=== PATIENT | male | born 1935 | race Caucasian/White ===

== ENCOUNTER 2016-09-06 23:37 | Day surgery (SDC) | payer MEDICARE, BC ==
[2016-09-07] MEDS ORDERED: Sodium Chloride 0.9% 10 ML Syringe FLUSH PRN (00:23)
[2016-09-07] MEDS ORDERED: Iopamidol 755 Mg/ML 100 ML Bottle IV SCH (01:00)
[2016-09-07] MEDS ORDERED: Sodium Chloride 0.9% 1,000 ML IV ONE (02:08)
[2016-09-07] MEDS ORDERED: Lactated Ringers 1,000 ML IV SCH (02:15)
[2016-09-07] MEDS ORDERED: fentaNYL 100 MCG/2 ML SDV IV ONE (03:00)
[2016-09-07] MEDS ORDERED: cefOXitin 1 GM Vial IV ONE (03:00)
[2016-09-07] MEDS ORDERED: Midazolam 1 MG/ML 2 ML SDV IV ONE (03:00)
[2016-09-07] MEDS ORDERED: Lidocaine 2% 100 MG/5 ML Syringe IVPUSH ONE (03:00)
[2016-09-07] MEDS ORDERED: Dexamethasone 4 MG/ML 5 ML MDV IVPUSH ONE (03:00)
[2016-09-07] MEDS ORDERED: Lactated Ringers 1,000 ML IV ONE (03:00)
[2016-09-07] MEDS ORDERED: Ondansetron 4 MG/2 ML SDV IVPUSH ONE (03:00)
[2016-09-07] MEDS ORDERED: Propofol 200 MG/20 ML SDV IV ONE (03:00)
[2016-09-07] MEDS ORDERED: Succinylcholine/Normal Saline 200 MG/10 ML Syringe IV ONE (03:00)
[2016-09-07] MEDS ORDERED: Rocuronium 50 MG/5 ML Vial IV ONE (03:00)
[2016-09-07] MEDS ORDERED: ePHEDrine 50 MG/ML SDV IV ONE (03:00)
[2016-09-07] MEDS ORDERED: Neostigmine Methylsulfate 1 MG/ML 5 ML Syringe IV ONE (03:00)
--- NOTE | 2016-09-07 03:01 | ER ---
DATE SEEN: 09/06/2016 EKG: Sinus rhythm. Nonspecific intraventricular conduction. Otherwise, no evidence for atrial fibrillation. /[id number] OTONIEL/EDUARDO
[2016-09-07] MEDS ORDERED: Bupivacaine 0.5%/EPINEPHrine 1:200,000 50 ML MDV INJECT ONE (03:28)
--- NOTE | 2016-09-07 03:46 | HP ---
ADMISSION DATE: 09/07/2016 HISTORY OF PRESENT ILLNESS: This 81-year-old male presented to the emergency room with a several-hour history of abdominal pain. The pain had been present for about 4-6 hours and had been gradually intensifying in the lower abdomen. During evaluation, the patient was noted to have the pain most severe in the right lower quadrant. It was not associated with nausea or diarrhea and the patient has not had fever or chills. The patient was evaluated with laboratory studies, which were unremarkable with a normal white blood cell count of 10,800 and a hemoglobin of 12.1. His potassium is 4.0 and creatinine is 1.3. His INR is 1.36. Urinalysis is unremarkable. The patient underwent a CT scan of the abdomen, which was interpreted by the radiologist as showing evidence of appendicitis with a dilated appendix with some periappendiceal inflammation. PAST MEDICAL HISTORY: Shows previous surgeries to include bilateral inguinal hernias. He has a history of hypertension and atrial fibrillation. CURRENT MEDICATIONS: Include amiodarone 100 mg a day, Coumadin 5 mg a day, trandolapril 4 mg a day, and omeprazole 20 mg a day. ALLERGIES: He has no known drug allergies, although he does state he is allergic to peanuts. SOCIAL HISTORY: He does not smoke. 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 REVIEW OF SYSTEMS: On system review, he denies any recent problems with cough, cold, or sore throat symptoms. No chest pain or palpitations. Appetite has generally been good recently. He has had a colonoscopy less than a year ago, which showed that his colon appeared normal. There was diverticula noted on his CT scan, but without evidence of diverticulitis. PHYSICAL EXAMINATION: VITAL SIGNS: Temperature is 97.6, pulse 70, blood pressure is 121/91 on admission to the ER. GENERAL: The patient is an alert, elderly male. He is in no acute distress. HEENT: His head is normocephalic. There is no scleral icterus. NECK: Supple. No cervical masses. HEART: Irregular. No murmurs heard. LUNGS: Clear. Breath sounds are equal. There is no wheezing. ABDOMEN: Not distended. There is localized tenderness to direct palpation as well as percussion in the right lower quadrant with mild guarding. I do not feel any abdominal masses. EXTREMITIES: No calf tenderness or ankle edema. NEUROLOGIC: The patient is alert and does not demonstrate any gross cognitive deficit. IMPRESSION: 1. Acute appendicitis. 2. Atrial fibrillation, on Coumadin. Current INR mildly elevated. 3. History of hypertension. PLAN: Advised appendectomy. Even though the patient has taken Coumadin and is somewhat anticoagulated, I believe the risk of delaying surgery in this patient is greater than the risk of bleeding, and I have advised that we proceed promptly with this operation. I have discussed this with the patient reviewing with him indications, options, and risks, such as the increased risk of bleeding, risk of infection, organ injury, and possible need to convert to an open procedure. He appears to understand the discussion and agrees to proceed. /[id number] MARVIN/EDUARDO
[2016-09-07] MEDS ORDERED: Morphine 2 MG/ML Syringe IVPUSH PRN (04:09)
[2016-09-07] MEDS ORDERED: Acetaminophen/HYDROcodone 325-5 MG Tab PO PRN (04:09)
[2016-09-07] MEDS ORDERED: Ondansetron 4 MG/2 ML SDV IVPUSH PRN (04:09)
--- NOTE | 2016-09-07 04:09 | PCM.OPNOTE ---
- General Post-Op/Procedure Note Date of Surgery/Procedure: 09/07/16 Operative Procedure(s): Laparoscopic Appendectomy Findings: Acutely inflamed appendix Pre Op Diagnosis: Acute Appendicitis Post-Op Diagnosis: Same Anesthesia Technique: General ET tube Primary Surgeon: Romero Iglesias Pathology: Appendix Output, Urine Amount: 0 EBL in mLs: 25 Complications: None Condition: Good
[2016-09-07] MEDS ORDERED: cefOXitin 2 GM in Sodium Chloride 0.9% 50 ML IV SCH (04:15)
[2016-09-07] MEDS: Lactated Ringers 1,000 ML IV SCH ×2 (04:37→15:13)
--- NOTE | 2016-09-07 06:08 | OR ---
DATE OF OPERATION: 09/07/2016 SURGEON: Romero Iglesias MD PREOPERATIVE DIAGNOSIS: Acute appendicitis. POSTOPERATIVE DIAGNOSIS: Acute appendicitis. OPERATION PERFORMED: Laparoscopic appendectomy. INDICATIONS FOR SURGERY: This 81-year-old male presented to the emergency room with progressive lower abdominal pain. He was noted to have localized tenderness in the right lower quadrant and a CT scan of the abdomen confirmed findings consistent with acute appendicitis. FINDINGS: The appendix was acutely inflamed. It was indurated, had a small amount of surface exudate. The proximal portion of the appendix was hyperemic but there was no evidence of perforation, and the proximal appendix and adjacent cecum were soft without induration. No other intraabdominal abnormalities were seen laparoscopically. PROCEDURE IN DETAIL: The patient was taken to the operating room. He was given general endotracheal anesthesia and the abdomen was sterilely prepped and draped. An infraumbilical stab wound incision was made. Through this, a Veress needle was inserted and pneumoperitoneum via this needle to a pressure of 15 mmHg was achieved with carbon dioxide. The Veress needle was then replaced with a 5 mm trocar into which the 5 mm variable angled laparoscopic camera was inserted. Under direct visualization, a 12 mm trocar was placed in the suprapubic midline and another 5 mm trocar was placed in the right lower quadrant. All trocar sites were infiltrated with Marcaine prior to incision. Intraabdominal inspection was carried out and attention was turned to the appendix. The appendix was exposed and then a small window was made in the mesoappendix adjacent to the cecum. An Endo LUCY stapler with 2.5 mm staple length was then fired across the appendiceal cecal junction the appendix from the cecum. The cecal staple line was carefully inspected and found to appear intact and of good quality. Two firings of the Endo LUCY with 2.5 mm staple length was then carried out across the mesoappendix completely dividing this. The appendix was placed into an Endo retrieval bag and then extracted through the largest trocar site. Reinspection of the operative area showed good hemostasis to be maintained. There did not appear to be any excessive bleeding during the case related to the patient's Coumadin use. Copious irrigation of the operative region was performed. Inspection showed no sign of bleeding or complicating process. The trocars were then removed under direct visualization and the pneumoperitoneum was evacuated. The fascia of the suprapubic trocar site was closed with a [id number] 0 Vicryl suture. The wounds were irrigated with Betadine and saline solution. Skin incisions were approximated with interrupted 4-0 Vicryl in a subcuticular stitch, Steri-Strips and benzoin were applied. Antibiotic ointment and sterile dressings were placed. The patient was then awakened, extubated, and taken from the operating room in satisfactory condition. ESTIMATED BLOOD LOSS: 25 mL. COMPLICATIONS: None. PROGNOSIS: Good. /[id number] MARVIN/EDUARDO
[2016-09-07] MEDS ORDERED: Omeprazole 20 MG Cap.CR PO SCH (09:00)
[2016-09-07] MEDS: cefOXitin 2 GM in Sodium Chloride 0.9% 50 ML IV SCH ×3 (09:24→20:53)
[2016-09-07] MEDS: OMEPRAZOLE 20 MG PO SCH (12:30)
[2016-09-07] MEDS: TRANDOLAPRIL 4 MG PO SCH (12:30)
[2016-09-07] MEDS: AMIODARONE 200 MG PO SCH (12:30)
--- NOTE | 2016-09-07 12:53 | ER ---
DATE SEEN: 09/06/2016 TIME SEEN: The patient was seen at 2358 hours. CHIEF COMPLAINT: Right lower quadrant pain. 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 No associated vomiting, diarrhea, but noted 8/10 right lower quadrant abdominal discomfort. PAST MEDICAL HISTORY: No allergies. No diabetes. No heart disease. He does have atrial fibrillation. MEDICATIONS: 1. Taking anticoagulants. 2. Warfarin 5 mg daily. 3. Trandolapril. 4. Omeprazole. 5. Amiodarone 100 mg daily. Previously documented Katz's esophagitis, hiatus hernia. No asthma. No bleeding disorder. REVIEW OF SYSTEMS: GENERAL: No previous surgery. HEENT: PERRLA intact, without cataract, headache, sore throat, sinusitis. CARDIORESPIRATORY: No chest pain, shortness of breath, diabetes, syncope or near syncope, palpitations. No chronic obstructive lung disease. He was not a smoker. No cough. No dyspnea on exertion. No orthopnea or PND. No pedal edema. GI: As above. No GERD, diarrhea, constipation, blood in the stool. : Denies frequency, urgency, dysuria, or difficulty passing urine. MUSCULOSKELETAL: Negative. Mild arthritis, but otherwise asymptomatic. NEUROPSYCH: Negative. No depression. PHYSICAL EXAMINATION: VITAL SIGNS: Blood pressure 121/91; heart rate 59, irregularly irregular; respirations 20; 99% sat; temperature 97.2. GENERAL: Alert, swarthy, somewhat tanned, and without scleral icterus. Slightly decreased hearing. No cervical adenopathy. No thyromegaly. No bruits in neck. HEART: S1, S2. No murmur. ABDOMEN: Soft, with mild guarding right lower quadrant. Rovsing sign is positive. Heel tap rebound noted. GENITALIA: Negative. RECTAL: Not performed. EXTREMITIES: Lower extremities without edema. Deep tendon reflexes hypoactive. NEUROLOGIC: Cranial nerves II through XII intact. Oriented. DIAGNOSTIC DATA: CAT scan; 9 mm fluid-filled appendix, suggesting appendicitis with mild appendiceal stranding. No rupture or abscess. Colonic diverticulosis without acute diverticulitis noted. Hiatus hernia with reflux into the lower esophagus, fat-containing umbilical hernia. Previous right inguinal herniorrhaphy surgery. Multilevel degenerative bony changes, grade 1 anterolisthesis at L3 on L4 and L4 on L5. Mild attenuations upper pole of both kidneys, 2.1 cm cyst left inferior pole of the kidney. Lower lungs show mild scarring and atelectasis. ASSESSMENT: Appendicitis. LABORATORY DATA: White count 10,800, PMNs 83, lymphocytes 11, monos 6, hemoglobin 12.8. Lactate 1.0. Sodium 133, potassium 4.0, chloride 103, bicarb 22, GFR 53, hemoglobin 12.1. PLAN: The patient's status discussed with Dr. Iglesias. The patient is to go to surgery, is a mild surgical risk because of the anticoagulation, INR pending. N.p.o., IV 600 mL flush, followed by 200 mL/hr of warm saline. /[id number] OTONIEL/EDUARDO
--- NOTE | 2016-09-07 16:19 | PCM.SURGPN ---
- General Info Date of Service: 09/07/16 Date of Surgery/Procedure: 09/07/16 POD#: 0 Post-Op Diagnosis: Acute Appendicitis Functional Status: Reports: pain controlled (not taking pain meds) - Review of Systems Pulmonary: Reports: no symptoms Gastrointestinal: Reports: Other (taking PO liquids well). Denies: Nausea, Vomiting Musculoskeletal: Reports: no symptoms - Patient Data Vitals - most recent: Last Vital Signs Temp 97.3 F 09/07/16 13:03 Pulse 73 09/07/16 13:03 Resp 17 09/07/16 13:03 BP 144/80 H 09/07/16 13:03 Pulse Ox 95 09/07/16 13:03 Weight - most recent: 191 lb 9.6 oz I&O - last 24 hours: Intake & Output 09/07/16 09/07/16 09/07/16 06:59 14:59 22:59 Intake Total 100 1000 Output Total 50 1200 280 Balance 50 -200 -280 Lab Results last 24 hrs: Laboratory Results - last 24 hr 09/07/16 09/07/16 09/07/16 Range/Units 00:20 00:40 00:40 WBC 10.8 (4.5-12.0) X10-3/uL RBC 3.63 L (4.30-5.75) x10(6)uL Hgb 12.1 (11.5-15.5) g/dL Hct 35.5 (30.0-51.3) % MCV 97.9 H (80-96) fL MCH 33.2 (27.7-33.6) pg MCHC 33.9 (32.2-35.4) g/dL RDW 13.9 (11.5-15.5) % Plt Count 203 (125-369) X10(3)uL MPV 7.9 (7.4-10.4) fL Neut % (Auto) 83.0 H (46-82) % Lymph % (Auto) 10.5 L (13-37) % [place] % (Auto) 5.7 (4-12) % Eos % (Auto) 1 (1.0-5.0) % Baso % (Auto) 0 (0-2) % Neut # (Auto) 9.0 H (1.6-8.3) # Lymph # (Auto) 1.1 (0.6-5.0) # [place] # (Auto) 0.6 (0.0-1.3) # Eos # (Auto) 0.1 (0.0-0.8) # Baso # (Auto) 0.0 (0.0-0.2) # PT (8.7-11.1) INR (0.89-1.13) Sodium 133 L (135-145) mmol/L Potassium 4.0 (3.5-5.3) mmol/L Chloride 103 (100-110) mmol/L Carbon Dioxide 22 L (23-29) mmol/L BUN 20 (8-23) mg/dL Creatinine 1.3 (0.6-1.3) mg/dL Est Cr Clr Drug Dosing TNP Estimated GFR (MDRD) 53 L (>60) BUN/Creatinine Ratio 15.4 (9-20) Glucose 103 (80-116) mg/dL Lactic Acid (0.5-2.2) mmol/L Calcium 9.0 (8.6-10.2) mg/dL Total Bilirubin 0.6 (0.1-1.3) mg/dL AST 27 (5-27) IU/L ALT 19 (14-26) IU/L Alkaline Phosphatase 73 (56-112) IU/L Total Protein 7.4 (6.0-8.0) g/dL Albumin 4.3 (3.2-4.6) g/dL Globulin 3.1 g/dL Albumin/Globulin Ratio 1.4 Urine Color Yellow (YELLOW) Urine Appearance Clear (CLEAR) Urine pH 5.0 (5.0-6.5) Ur Specific [place] 1.025 (1.010-1.025) Urine Protein Negative (NEGATIVE) mg/dL Urine Glucose (UA) Normal (NEGATIVE) mg/dL Urine Ketones 15 H (NEGATIVE) mg/dL Urine Occult Blood Negative (NEGATIVE) Urine Nitrite Negative (NEGATIVE) Urine Bilirubin Small H (NEGATIVE) Urine Urobilinogen Normal (NEGATIVE) mg/dL Ur Leukocyte Esterase Negative (NEGATIVE) Urine RBC 0-5 (0) Urine WBC 0-5 (0) Ur Squamous Epith Cells Occasional (NS,R,O) Urine Bacteria Rare H (NS) Urine Mucus Few H (NS) 09/07/16 09/07/16 Range/Units 00:40 00:40 WBC (4.5-12.0) X10-3/uL RBC (4.30-5.75) x10(6)uL Hgb (11.5-15.5) g/dL Hct (30.0-51.3) % MCV (80-96) fL MCH (27.7-33.6) pg MCHC (32.2-35.4) g/dL RDW (11.5-15.5) % Plt Count (125-369) X10(3)uL MPV (7.4-10.4) fL Neut % (Auto) (46-82) % Lymph % (Auto) (13-37) % [place] % (Auto) (4-12) % Eos % (Auto) (1.0-5.0) % Baso % (Auto) (0-2) % Neut # (Auto) (1.6-8.3) # Lymph # (Auto) (0.6-5.0) # [place] # (Auto) (0.0-1.3) # Eos # (Auto) (0.0-0.8) # Baso # (Auto) (0.0-0.2) # PT 13.8 H (8.7-11.1) INR 1.36 H (0.89-1.13) Sodium (135-145) mmol/L Potassium (3.5-5.3) mmol/L Chloride (100-110) mmol/L Carbon Dioxide (23-29) mmol/L BUN (8-23) mg/dL Creatinine (0.6-1.3) mg/dL Est Cr Clr Drug Dosing Estimated GFR (MDRD) (>60) BUN/Creatinine Ratio (9-20) Glucose (80-116) mg/dL Lactic Acid 1.0 (0.5-2.2) mmol/L Calcium (8.6-10.2) mg/dL Total Bilirubin (0.1-1.3) mg/dL AST (5-27) IU/L ALT (14-26) IU/L Alkaline Phosphatase (56-112) IU/L Total Protein (6.0-8.0) g/dL Albumin (3.2-4.6) g/dL Globulin g/dL Albumin/Globulin Ratio Urine Color (YELLOW) Urine Appearance (CLEAR) Urine pH (5.0-6.5) Ur Specific [place] (1.010-1.025) Urine Protein (NEGATIVE) mg/dL Urine Glucose (UA) (NEGATIVE) mg/dL Urine Ketones (NEGATIVE) mg/dL Urine Occult Blood (NEGATIVE) Urine Nitrite (NEGATIVE) Urine Bilirubin (NEGATIVE) Urine Urobilinogen (NEGATIVE) mg/dL Ur Leukocyte Esterase (NEGATIVE) Urine RBC (0) Urine WBC (0) Ur Squamous Epith Cells (NS,R,O) Urine Bacteria (NS) Urine Mucus (NS) Med Orders - Current: Current Medications Hydrocodone Bitart/Acetaminophen ([place] 325-5 Mg) 1 tab PO Q4H PRN PRN Reason: Pain (mild 1-3) Amiodarone HCl (Cordarone) 100 mg PO DAILY [facility] Last Admin: 09/07/16 12:30 Dose: 100 mg Lactated Ringer's (Ringers, Lactated) 1,000 mls @ 50 mls/hr IV ASDIRECTED [facility] Last Admin: 09/07/16 15:13 Dose: 100 mls/hr Cefoxitin Sodium 2 gm/ Sodium (Chloride) 50 mls @ 100 mls/hr IV Q6H [facility] Last Admin: 09/07/16 15:13 Dose: 100 mls/hr Iopamidol (Isovue-370 (76%)) 100 ml IV . DIRECTED [facility] Last Admin: 09/07/16 01:26 Dose: 92 ml Morphine Sulfate (Morphine) 2 mg IVPUSH Q1H PRN PRN Reason: Pain (severe 7-10) Non-Formulary Medication (Trandolapril [Trandolapril]) 4 mg PO DAILY [facility] Last Admin: 09/07/16 12:30 Dose: 4 mg Omeprazole (Omeprazole) 20 mg PO 0600 [facility] Last Admin: 09/07/16 12:30 Dose: 20 mg Ondansetron HCl (Zofran) 4 mg IVPUSH Q6H PRN PRN Reason: Nausea/Vomiting Sodium Chloride (Saline Flush) 10 ml FLUSH ASDIRECTED PRN PRN Reason: Keep Vein Open Last Admin: 09/07/16 00:25 Dose: 10 ml Discontinued Medications Bupivacaine HCl/Epinephrine Bitart (Marcaine 0.5%/Epinephrine 1:200,000) 12 ml INJECT .STK-MED ONE Stop: 04/25/17 03:29 Last Admin: 09/07/16 03:28 Dose: 12 ml Sodium Chloride (Normal Saline) 1,000 mls @ 999 mls/hr IV .BOLUS ONE Stop: 09/07/16 03:08 Last Admin: 09/07/16 02:21 Dose: 999 mls/hr Omeprazole (Omeprazole) 20 mg PO DAILY [facility] - Exam Wound/Incisions: dressing dry and intact Lungs: Normal respiratory effort - Problem List Review Problem List Initiated/Reviewed/Updated: Yes - My Orders Last 24 Hours: Active Orders 24 hr Category Date Time Status Patient Status [ADT] Routine ADT 09/07/16 04:09 Active Ambulate [RC] 09,13,17,21 Care 09/07/16 04:09 Active Antiembolic Devices [RC] 08,16,00 Care 09/07/16 04:12 Active Intake and Output [RC] 06,14,22 Care 09/07/16 04:11 Active RT Incentive Spirometry [RC] Q1HWA Care 09/07/16 04:09 Active VTE/DVT Education [RC] Click to Edit Care 09/07/16 04:12 Active Vital Signs [RC] Q4H Care 09/07/16 04:09 Active Clear Liquid Diet [DIET] Diet 09/07/16 Breakfast Ordered Full Liquid Diet [DIET] Diet 09/08/16 Breakfast Ordered Abdomen Pelvis w Cont [CT] Stat Exams 09/07/16 00:18 Taken Acetaminophen/HYDROcodone [[place] 325-5 MG] Med 09/07/16 04:09 Active 1 tab PO Q4H PRN Amiodarone [Cordarone] Med 09/07/16 09:00 Active 100 mg PO DAILY Iopamidol [Isovue-370 (76%)] Med 09/07/16 01:00 Active 100 ml IV . DIRECTED Lactated Ringers [Ringers, Lactated] 1,000 ml Med 09/07/16 04:15 Active IV ASDIRECTED Morphine Med 09/07/16 04:09 Active 2 mg IVPUSH Q1H PRN Omeprazole Med 09/07/16 11:30 Active 20 mg PO 0600 Ondansetron [Zofran] Med 09/07/16 04:09 Active 4 mg IVPUSH Q6H PRN Sodium Chloride 0.9% [Saline Flush] Med 09/07/16 00:23 Active 10 ml FLUSH ASDIRECTED PRN Trandolapril [Trandolapril] Med 09/07/16 09:00 Active 4 mg PO DAILY cefOXitin [Mefoxin] 2 gm Med 09/07/16 09:00 Active Sodium Chloride 0.9% [Normal Saline] 50 ml IV Q6H DVT/VTE Prophylaxis Reflex [OM.PC] Per Unit Routine Oth 09/07/16 04:12 Ordered Saline Lock Insert [OM.PC] Routine Oth 09/07/16 00:23 Ordered Sequential Compression Device [OM.PC] Routine Oth 09/07/16 04:09 Ordered Resuscitation Status Routine Resus Stat 09/07/16 04:09 Ordered EKG 12 Lead [EK] Routine Ther 09/07/16 02:13 Ordered Medication Orders Hydrocodone Bitart/Acetaminophen ([place] 325-5 Mg) 1 tab PO Q4H PRN PRN Reason: Pain (mild 1-3) Amiodarone HCl (Cordarone) 100 mg PO DAILY [facility] Last Admin: 09/07/16 12:30 Dose: 100 mg Lactated Ringer's (Ringers, Lactated) 1,000 mls @ 50 mls/hr IV ASDIRECTED [facility] Last Admin: 09/07/16 15:13 Dose: 100 mls/hr Infusion: 09/07/16 14:37 Dose: 100 mls/hr Admin: 09/07/16 04:37 Dose: 100 mls/hr Cefoxitin Sodium 2 gm/ Sodium (Chloride) 50 mls @ 100 mls/hr IV Q6H [facility] Last Admin: 09/07/16 15:13 Dose: 100 mls/hr Admin: 09/07/16 09:24 Dose: 100 mls/hr Iopamidol (Isovue-370 (76%)) 100 ml IV . DIRECTED [facility] Last Admin: 09/07/16 01:26 Dose: 92 ml Morphine Sulfate (Morphine) 2 mg IVPUSH Q1H PRN PRN Reason: Pain (severe 7-10) Non-Formulary Medication (Trandolapril [Trandolapril]) 4 mg PO DAILY [facility] Last Admin: 09/07/16 12:30 Dose: 4 mg Omeprazole (Omeprazole) 20 mg PO 0600 [facility] Last Admin: 09/07/16 12:30 Dose: 20 mg Ondansetron HCl (Zofran) 4 mg IVPUSH Q6H PRN PRN Reason: Nausea/Vomiting Sodium Chloride (Saline Flush) 10 ml FLUSH ASDIRECTED PRN PRN Reason: Keep Vein Open Last Admin: 09/07/16 00:25 Dose: 10 ml - Assessment Assessment (Free Text/Narrative):: Stable from appendectomy early this AM On Coumadin regularly but no sign of any post op bleeding - Plan Plan (Free Text/Narrative):: Will have patient stay tonight Give Full Liquids in AM Continue to hold Coumadin
[2016-09-08] MEDS: cefOXitin 2 GM in Sodium Chloride 0.9% 50 ML IV SCH ×2 (03:30→08:46)
[2016-09-08] MEDS: OMEPRAZOLE 20 MG PO SCH (07:12)
[2016-09-08] MEDS: TRANDOLAPRIL 4 MG PO SCH (08:35)
[2016-09-08] MEDS: AMIODARONE 200 MG PO SCH (08:35)
--- NOTE | 2016-09-08 08:35 | PCM.SURGPN ---
- General Info Date of Service: 09/08/16 Date of Surgery/Procedure: 09/07/16 POD#: 1 Post-Op Diagnosis: Acute Appendicitis Functional Status: Reports: pain controlled (not requiring pain medication) - Review of Systems Pulmonary: Denies: shortness of breath Cardiovascular: Denies: Chest Pain, Edema Gastrointestinal: Reports: Other (tolerated full liquids well this am). Denies : Nausea, Vomiting Genitourinary: Reports: no symptoms - Patient Data Vitals - most recent: Last Vital Signs Temp 97.4 F 09/08/16 03:30 Pulse 69 09/08/16 03:30 Resp 18 09/08/16 07:00 BP 137/80 09/08/16 03:30 Pulse Ox 96 09/08/16 03:30 Weight - most recent: 191 lb 9.6 oz I&O - last 24 hours: Intake & Output 09/07/16 09/08/16 09/08/16 22:59 06:59 14:59 Intake Total 1881 1020 Output Total 1855 1900 Balance 26 -880 Med Orders - Current: Current Medications Hydrocodone Bitart/Acetaminophen ([employer] 325-5 Mg) 1 tab PO Q4H PRN PRN Reason: Pain (mild 1-3) Amiodarone HCl (Cordarone) 100 mg PO DAILY [facility] Last Admin: 09/07/16 12:30 Dose: 100 mg Lactated Ringer's (Ringers, Lactated) 1,000 mls @ 50 mls/hr IV ASDIRECTED [facility] Last Admin: 09/07/16 15:13 Dose: 100 mls/hr Cefoxitin Sodium 2 gm/ Sodium (Chloride) 50 mls @ 100 mls/hr IV Q6H [facility] Last Admin: 09/08/16 03:30 Dose: 100 mls/hr Iopamidol (Isovue-370 (76%)) 100 ml IV . DIRECTED [facility] Last Admin: 09/07/16 01:26 Dose: 92 ml Morphine Sulfate (Morphine) 2 mg IVPUSH Q1H PRN PRN Reason: Pain (severe 7-10) Non-Formulary Medication (Trandolapril [Trandolapril]) 4 mg PO DAILY [facility] Last Admin: 09/07/16 12:30 Dose: 4 mg Omeprazole (Omeprazole) 20 mg PO 0600 [facility] Last Admin: 09/08/16 07:12 Dose: 20 mg Ondansetron HCl (Zofran) 4 mg IVPUSH Q6H PRN PRN Reason: Nausea/Vomiting Sodium Chloride (Saline Flush) 10 ml FLUSH ASDIRECTED PRN PRN Reason: Keep Vein Open Last Admin: 09/07/16 00:25 Dose: 10 ml Discontinued Medications Bupivacaine HCl/Epinephrine Bitart (Marcaine 0.5%/Epinephrine 1:200,000) 12 ml INJECT .STK-MED ONE Stop: 09/07/16 03:29 Last Admin: 09/07/16 03:28 Dose: 12 ml Cefoxitin Sodium (Mefoxin) 1 gm IV .STK-MED ONE Stop: 09/07/16 03:01 Dexamethasone (Dexamethasone) 4 mg IVPUSH .STK-MED ONE Stop: 09/07/16 03:01 Ephedrine Sulfate (Ephedrine Sulfate) 30 mg IV .STK-MED ONE Stop: 09/07/16 03:01 Fentanyl (Sublimaze) 100 mcg IV .STK-MED ONE Stop: 09/07/16 03:01 Glycopyrrolate () 0.4 mg IVPUSH .STK-MED ONE Stop: 09/07/16 03:01 Sodium Chloride (Normal Saline) 1,000 mls @ 999 mls/hr IV .BOLUS ONE Stop: 09/07/16 03:08 Last Admin: 09/07/16 02:21 Dose: 999 mls/hr Lactated Ringer's (Ringers, Lactated) 1,000 mls @ as directed IV .STK-MED ONE Stop: 09/07/16 03:01 Lidocaine HCl (Xylocaine 2%) 80 mg IVPUSH .STK-MED ONE Stop: 09/07/16 03:01 Midazolam HCl (Versed 1 Mg/Ml) 2 mg IV .STK-MED ONE Stop: 09/07/16 03:01 Neostigmine Methylsulfate (Neostigmine) 3 mg IV .STK-MED ONE Stop: 09/07/16 03:01 Omeprazole (Omeprazole) 20 mg PO DAILY [facility] Ondansetron HCl (Zofran) 4 mg IVPUSH .STK-MED ONE Stop: 09/07/16 03:01 Propofol (Diprivan 20 Ml) 130 mg IV .STK-MED ONE Stop: 09/07/16 03:01 Rocuronium [place] (Zemuron) 30 mg IV .STK-MED ONE Stop: 09/07/16 03:01 Succinylcholine Chloride (Succinylcholine In Ns Pf) 100 mg IV .STK-MED ONE Stop: 09/07/16 03:01 - Exam Wound/Incisions: healing well, drainage (mil). No: erythema General: alert, oriented (Moderate bruising around umbilical incision) Lungs: Normal respiratory effort Abdomen: soft, tenderness (minimal in RLQ - much improved from pre op) Extremities: no edema, no tenderness/swelling - Problem List Review Problem List Initiated/Reviewed/Updated: Yes - My Orders Last 24 Hours: Active Orders 24 hr Category Date Time Status Full Liquid Diet [DIET] Diet 09/08/16 Breakfast Ordered Amiodarone [Cordarone] Med 09/07/16 09:00 Active 100 mg PO DAILY Omeprazole Med 09/07/16 11:30 Active 20 mg PO 0600 Trandolapril [Trandolapril] Med 09/07/16 09:00 Active 4 mg PO DAILY cefOXitin [Mefoxin] 2 gm Med 09/07/16 09:00 Active Sodium Chloride 0.9% [Normal Saline] 50 ml IV Q6H Medication Orders Hydrocodone Bitart/Acetaminophen ([employer] 325-5 Mg) 1 tab PO Q4H PRN PRN Reason: Pain (mild 1-3) Amiodarone HCl (Cordarone) 100 mg PO DAILY [facility] Last Admin: 09/07/16 12:30 Dose: 100 mg Lactated Ringer's (Ringers, Lactated) 1,000 mls @ 50 mls/hr IV ASDIRECTED [facility] Last Admin: 09/07/16 15:13 Dose: 100 mls/hr Infusion: 09/07/16 14:37 Dose: 100 mls/hr Admin: 09/07/16 04:37 Dose: 100 mls/hr Cefoxitin Sodium 2 gm/ Sodium (Chloride) 50 mls @ 100 mls/hr IV Q6H [facility] Last Admin: 09/08/16 03:30 Dose: 100 mls/hr Admin: 09/07/16 20:53 Dose: 100 mls/hr Admin: 09/07/16 15:13 Dose: 100 mls/hr Admin: 09/07/16 09:24 Dose: 100 mls/hr Iopamidol (Isovue-370 (76%)) 100 ml IV . DIRECTED [facility] Last Admin: 09/07/16 01:26 Dose: 92 ml Morphine Sulfate (Morphine) 2 mg IVPUSH Q1H PRN PRN Reason: Pain (severe 7-10) Non-Formulary Medication (Trandolapril [Trandolapril]) 4 mg PO DAILY [facility] Last Admin: 09/07/16 12:30 Dose: 4 mg Omeprazole (Omeprazole) 20 mg PO 0600 [facility] Last Admin: 09/08/16 07:12 Dose: 20 mg Admin: 09/07/16 12:30 Dose: 20 mg Ondansetron HCl (Zofran) 4 mg IVPUSH Q6H PRN PRN Reason: Nausea/Vomiting Sodium Chloride (Saline Flush) 10 ml FLUSH ASDIRECTED PRN PRN Reason: Keep Vein Open Last Admin: 09/07/16 00:25 Dose: 10 ml - Assessment Assessment (Free Text/Narrative):: POD#1 Appendectomy - doing well - Plan Plan (Free Text/Narrative):: Discharge Follow up in 1 week Patient will use OTC analgesics No heavy lifting for 4 weeks Light diet until bowels working
[2016-09-08 09:24] VITALS: BP 133/85
== END 2016-09-08 11:40 | disposition home or self-care (01) ==
LOC: FB.ED 23:37 → FB.SDS 09-07 02:31 → FB.MS 09-07 05:13 → FB.SDS 09-08 11:40
PROVIDERS: ATTEND Surgery
DX: K35.80 Unspecified acute appendicitis (principal); Z79.01 Long term (current) use of anticoagulants; Z79.899 Other long term (current) drug therapy; Z91.010 Allergy to peanuts
CPT/HCPCS: 00840; 36415; 44970; 74177; 80053; 81001; 83605; 85025; 85610; 88304; 93005; 94150; 99284; 99285; A9270; J0694; J1100; J2250; J2405; J2704; J3010; J7040; J7050; J7120; Q9967

== ENCOUNTER 2017-02-11 15:46 | Emergency (ER) | payer MEDICARE, BC ==
[2017-02-11] MEDS ORDERED: Diphtheria,Pertussis(Acell),Tetanus Vaccine 0.5 ML SDV IM ONE (16:14)
[2017-02-11 19:16] VITALS: BP 124/77
--- NOTE | 2017-02-14 09:28 | CT ---
INDICATION: Head trauma secondary to fall, paroxysmal atrial fibrillation, syncope. CT HEAD WITHOUT CONTRAST: Serial contiguous 2.5 and 5 mm sections were obtained through the brain without contrast 02/11/2017. No comparisons were available. Total exam DLP = 949.36 mGy-cm. There is complete opacification of the left maxillary antrum. Etiology is indeterminate. Cannot exclude sinusitis versus previous trauma, etc. A large retention cyst could be present - correlate clinically. Degenerative changes are noted at the atlantoodontoid joint. Calcifications are noted in the right vertebral artery and both internal carotid arteries, more prominently on the right than the left. There is prominence of the frontal and temporal cortical sulci, compatible with asymmetrical atrophy in those areas. No shift of midline structures or significant ventricular abnormalities were identified. No bleeding site or hematoma was seen. No definite abnormal areas of density were identified. There is suggestion of a few tiny areas of decreased density in the white matter, suggesting minimal microvascular disease. IMPRESSION: 1. No acute intracranial abnormalities. 2. Asymmetrical frontal/temporal atrophy. 3. Cerebrovascular disease with question of minimal microvascular disease. 4. Complete opacification of the left maxillary antrum without a definite fracture site. Possible old fracture of the posterior wall of the left maxillary antrum and nasal bone. Report was called to Dr. Mitchell at 1715 hours on 02/11/2017. [facility]
--- NOTE | 2017-02-14 12:51 | CR ---
INDICATION: Syncope secondary to paroxysmal atrial fibrillation, anticoagulation, head injury. CHEST: AP upright view of the chest 02/11/2017, compared with 03/14/2016, revealed the heart to appear somewhat enlarged. The aorta is tortuous with calcification in the arch. Overlying EKG leads are noted. An active infiltrate or effusion was not identified. Lungs appear to be somewhat hyperaerated. IMPRESSION: 1. No acute process. 2. ASHD. 3. Possible COPD - correlate clinically. MTDD
--- NOTE | 2017-02-15 15:29 | ER ---
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 Today, he experienced near syncope. He states that he has been advised to lie down when his heart rate speeds up. He has had the diagnosis of paroxysmal atrial fibrillation and has been seen by Dr. 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 He has had several episodes of paroxysmal atrial fibrillation, but none recently. This afternoon, he noted his heart rate was fast, put on his blood pressure machine and his blood pressure was 123/80, heart rate was 123 and irregularly irregular. He laid down for half an hour. He noted his blood pressure went down to 95/68, and when he got up, he felt a bit better, had some soup, got up and walked around, went up one step because his house has one step in it. He felt slightly ill, was unable to squat, had to sit down, and he grabbed the couch before he fell down. He did not remember scraping his head or losing consciousness. Apparently, he did because he has a scrape on his nose and does not remember falling. The patient then came to the hospital for further evaluation. He has atrial fibrillation with loop monitor that is present. MEDICATIONS: He takes: 1. Warfarin 5 mg daily. 2. Amiodarone 100 mg daily. 3. Omeprazole 20 mg daily. 4. Trandolapril 4 mg daily. OTHER PAST MEDICAL HISTORY: Significant for hearing aid. Paroxysmal atrial fibrillation. Katz's esophagitis. Actinic keratosis. Hiatus hernia. Syncope. Discussion with Cardiology about having ablation, but does not have ablation. Has a loop monitor in place. GERD. Decreased vision. Hypertension. The patient denies previous myocardial infarction or stroke or CVA. At one point, there was concern about placing him on anticoagulants; however, he was just placed on aspirin on further consultation with bowling alley attendant. ALLERGIES: Peanuts. REVIEW OF SYSTEMS: HEENT: He notes his hearing is decreased and vision decreased. Denies any recent sinus infection. Denies nasal discharge or sore throat or neck pressure. Denies thyroid disease. CARDIORESPIRATORY: As noted above. Denies pedal edema. Has rare episode atrial fibrillation. Has fast heart rate. Denies back pain, jaw pain, arm pain, neck pain, or dental pain. Denies chest pain. GI: Denies blood in the stool, black tarry stool, or change in his bowel or anemia, diarrhea, constipation, or reflux. He is on medicine for GERD. : Denies frequency, urgency, dysuria, or difficulty passing urine. MUSCULOSKELETAL: Denies decreased muscle strength. Denies pain in his legs. ENDOCRINE: Denies hot or cold intolerance or diabetes. PHYSICAL EXAMINATION: VITAL SIGNS: Blood pressure 129/78, heart rate 61 and regular. Oxygen saturation 95%. Repeat blood pressure orthostatics; supine 133/78, standing 120/83, differential 13 systolic and Delta increase of 6 mm with standing. Repeat blood pressure is 124/74 sitting. Heart rate 70, respirations 18 and unchanged. GENERAL: Alert, pleasant fellow, slightly hard of hearing. He has mild flushing of his face. Looks like he has been exposed to sun. HEENT: He denies sore throat, sinus congestions, or pressure in his sinuses. PERRLA intact. Pharynx without abnormality. No thyromegaly or masses in the neck. No cervical adenopathy. No bruits. Hearing is decreased. NECK: Supple. LUNGS: Clear to auscultation without rales, rhonchi, or wheezes. HEART: S1 and S2. No irregularity of rhythm. He has a sinus rhythm. ABDOMEN: Soft. No guarding. No abdominal discomfort. Bowel sounds normal. No bruits. No CVA percussion tenderness. EXTREMITIES: Without abnormality. GENITALIA: Negative. EXTREMITIES: Lower extremities without edema. Deep tendon reflexes normoactive upper and lower extremities. NEUROLOGIC: Cranial nerves II through XII intact. Gait intact. DIAGNOSTIC DATA: Chest x-ray, no cardiomegaly. He has a loop monitor in place. No infiltrate noted. CT of the head demonstrated asymmetrical frontal cortical atrophy without CVA. Left maxillary sinus with some suggestion of retention cyst. Chest x-ray with a loop monitor. Troponins have been less than 0.01 x2, 2 hours apart. Electrolytes: Sodium 133 slightly low, chloride is normal 104, potassium 4.5, BUN 21, creatinine 1.5. BUN and creatinine ratio 14, and GFR is 45. ASSESSMENT: 1. The patient has had sinus rhythm in the ER. 2. History of paroxysmal atrial fibrillation. Most recent discussion with Dr. North and he suggests having ablations. 3. He has been placed on aspirin. He is on warfarin. Anticoagulation status is appropriate. 4. No evidence for urinary tract infection noted. 5. Chronic kidney disease. PLAN: 1. The patient's status was discussed with Dr. Rodriguez, electrophysiology from [facility]. He works with another associate, Dr. Monteiro. Dr. Rodriguez felt that if his troponin was negative and if his course is stable, he could be dismissed. He was advised to have this patient plug in his recording device loop monitor with Sanghvi and dial [phone] for followup information with any abnormality. He called [employer] and they had not received anything from his loop monitor this evening. Consequently, the patient was dismissed to follow up with doctor in a week. 2. To go home and place his loop monitor tracing in with [employer] which will automatically go to Dr. Rodriguez or his bowling alley attendant. 3. Continue his medicine. No changes in his medicine. Follow up with his doctor Tuesday or Tuesday or earlier return to the ED if he has further attacks. OTHER DIAGNOSES: 1. Decreased hearing, presbycusis. 2. Atrial fibrillation currently sinus rhythm. 3. Katz's esophagitis. 4. Paroxysmal atrial fibrillation. 5. Actinic keratosis. 6. Hiatus hernia. 7. Syncope this evening. 8. Gastroesophageal reflux disease. 9. Abnormal vision. 10.Hypertension, stable. Denied orthostatic hypertension. 11.Previous appendectomy. /[id number] 05 OTONIEL/EDUARDO
== END 2017-02-11 20:30 | disposition home or self-care (01) ==
LOC: FB.ED 15:46
DX: R55 Syncope and collapse (principal); I48.0 Paroxysmal atrial fibrillation; K21.9 Gastro-esophageal reflux disease without esophagitis; I12.9 Hypertensive chronic kidney disease with stage 1 through stage 4 chronic kidney disease, or unspecified chronic kidney disease; Z90.49 Acquired absence of other specified parts of digestive tract; Z79.01 Long term (current) use of anticoagulants; Z79.899 Other long term (current) drug therapy; Z91.010 Allergy to peanuts; Z23 Encounter for immunization
CPT/HCPCS: 36415; 70450; 71010; 80053; 81001; 84443; 84484; 85025; 85379; 90471; 90715; 93005; 99284; 99285

== ENCOUNTER 2017-03-08 08:48 | Day surgery (SDC) | payer MEDICARE, BC ==
[~2017-03-08 08:48] MED LIST: Sodium Chloride 0.9% 10 ML Syringe FLUSH PRN
[2017-03-08] MEDS ORDERED: Propofol 200 MG/20 ML SDV IV ONE (12:00)
[2017-03-08 14:07] VITALS: BP 139/88
--- NOTE | 2017-03-09 08:28 | OR ---
DATE OF OPERATION: 03/08/2017 SURGEON: David Bonilla MD PREOPERATIVE DIAGNOSIS: Cataract right eye. POSTOPERATIVE DIAGNOSIS: Same. OPERATION PERFORMED: Phacoemulsification of cataract right eye with placement of an Ortega, model ZCB00, 22.0 diopter, foldable, posterior chamber intraocular lens. ASSEMBLER MUSICAL EQUIPMENT: None. DESCRIPTION OF PROCEDURE: Peribulbar anesthetic was performed using a mixture of 2% lidocaine with [place]. The patient was prepped and draped in the usual fashion. A 3 mm fornix based conjunctival flap was performed at the 10 o'clock position. Hemostasis was obtained using diathermy, and a 2.8 mm grooved near clear corneal incision was then made. A stab incision was made into the anterior chamber at the 12 o'clock position and a second stab wound incision was made underlying the grooved near clear corneal incision. Viscoat was instilled into the anterior chamber, and a continuous tear capsulotomy was performed. Hydrodissection was accomplished with balanced salt solution, and the nucleus was removed in a divide and conquer fashion. The remaining cortical material was removed with the irrigation and aspiration unit. Viscoat was instilled into the anterior chamber, and an NATALIE, Ortega, model ZCB00, 22.0 diopter, foldable, posterior chamber intraocular lens was placed into the capsular bag, the haptics being positioned at the 1 and 7 o'clock positions. The residual Viscoat was removed from the anterior chamber and the anterior chamber reformed with balanced salt solution. The wound was checked and noted to be watertight. The conjunctiva was secured in its original position with diathermy. Alphagan and Maxitrol Ointment were then placed into the patient's eye. The patient tolerated the procedure well and it was without complication. Elapsed phacoemulsification time was 1 minute 6 seconds. Postoperative instructions as related to activities as well as medications were reviewed with the patient. The patient was instructed to return to see me on the day following surgery for the first postoperative check. The patient was also instructed to contact me prior to that time if the patient were to have any problems. /[id number] DEG/MODL CC: CHANDLER HU MD [facility]Kim
== END 2017-03-08 13:44 | disposition home or self-care (01) ==
LOC: FB.SDS 08:48
PROVIDERS: ATTEND Ophthalmology
DX: H26.9 Unspecified cataract (principal); I12.9 Hypertensive chronic kidney disease with stage 1 through stage 4 chronic kidney disease, or unspecified chronic kidney disease; N18.9 Chronic kidney disease, unspecified; K21.9 Gastro-esophageal reflux disease without esophagitis; Z91.010 Allergy to peanuts; Z79.01 Long term (current) use of anticoagulants; Z79.899 Other long term (current) drug therapy
CPT/HCPCS: 66984; A4217; C1780; J2704; J7050; 00142-QZ

== ENCOUNTER 2017-03-14 09:22 | Observation (INO) | payer MEDICARE, BC ==
[2017-03-14] MEDS ORDERED: Diltiazem 25 MG/5 ML SDV IVPUSH ONE ×2 (09:44→11:03)
--- NOTE | 2017-03-14 09:49 | EDM.PDOC ---
ED HPI GENERAL MEDICAL PROBLEM - General Chief Complaint: Cardiovascular Problem Stated Complaint: FAST HEART RATE Time Seen by Provider: 03/14/17 09:22 Source of Information: Reports: Patient History Limitations: Reports: No Limitations - History of Present Illness INITIAL COMMENTS - FREE TEXT/NARRATIVE: 81 years old w m with a h/o A fib and HTN, on coumadin, come to the ed because of dizziness. Pt came by PC to the ED for further car. Pt felt palpitation. His BP goes up/down No C/P.Pt is on Coumadin. No F/C BP 110/67 pulse 110 -145 bpm Onset: Today Onset Date: 03/14/17 Onset Time: 04:00 Duration: Hour(s):, Intermittent Location: Reports: Chest Quality: Reports: Other (palpation) Improves with: Reports: Rest Worsens with: Reports: Movement Context: Reports: Other (a fib with RVR) Associated Symptoms: Reports: No Other Symptoms, Weakness - Related Data Allergies Allergy/AdvReac Type Severity Reaction Status Date / Time peanut Allergy Itching Verified 03/08/17 09:43 Home Meds: Home Meds Omeprazole 20 mg PO DAILY 03/29/15 [History] Amiodarone HCl [Pacerone] 100 mg PO DAILY 11/25/15 [History] Trandolapril 4 mg PO DAILY 09/06/16 [History] Warfarin Sodium [Jantoven] 5 mg PO DAILY 09/06/16 [History] Ammonium Lactate [Amlactin] 1 applic TP DAILY PRN 03/07/17 [History] Past Medical History HEENT History: Reports: Cataract, Other (See Below) Other HEENT History: Eyeglasses, hard of hearing Cardiovascular History: Reports: Afib, Hypertension Respiratory History: Reports: None Gastrointestinal History: Reports: GERD Genitourinary History: Reports: None Musculoskeletal History: Reports: Arthritis, Fracture Neurological History: Reports: Concussion Endocrine/Metabolic History: Reports: None Hematologic History: Reports: None Immunologic History: Reports: None Oncologic (Cancer) History: Reports: Basal Cell Carcinoma Dermatologic History: Reports: Seborrheic Dermatitis, Other (See Below) Other Dermatologic History: BASAL CELL ON FACE - Past Surgical History Head Surgeries/Procedures: Reports: None HEENT Surgical History: Reports: Oral Surgery Cardiovascular Surgical History: Reports: Other (See Below) Other Cardiovascular Surgeries/Procedures: IMPLANTED LOOP RECORDER. Respiratory Surgical History: Reports: None GI Surgical History: Reports: Appendectomy, Colonoscopy, EGD, Hernia, Inguinal Other GI Surgeries/Procedures: BILATERAL INGUINAL HERNIA WITH MESH. Male Surgical History: Reports: None Endocrine Surgical History: Reports: None Neurological Surgical History: Reports: None Musculoskeletal Surgical History: Reports: None Oncologic Surgical History: Reports: None Social & Family History - Tobacco Use Smoking Status *Q: Never Smoker Second Hand Smoke Exposure: No - Caffeine Use Caffeine Use: Reports: Coffee, Tea - Alcohol Use Days Per Week of Alcohol Use: 3 Number of Drinks Per Day: 1 Total Drinks Per Week: 3 - Recreational Drug Use Recreational Drug Use: No ED ROS GENERAL - Review of Systems Review Of Systems: See Below Constitutional: Reports: No Symptoms HEENT: Reports: No Symptoms Respiratory: Reports: No Symptoms Cardiovascular: Reports: Palpitations Endocrine: Reports: No Symptoms GI/Abdominal: Reports: No Symptoms : Reports: No Symptoms Musculoskeletal: Reports: No Symptoms Skin: Reports: No Symptoms Neurological: Reports: No Symptoms Psychiatric: Reports: No Symptoms Hematologic/Lymphatic: Reports: No Symptoms Immunologic: Reports: No Symptoms ED EXAM, GENERAL - Physical Exam Exam: See Below Exam Limited By: No Limitations General Appearance: Alert, WD/WN, Mild Distress Eye Exam: Bilateral Eye: Normal Inspection Ears: Normal External Exam, Normal TMs Ear Exam: Bilateral Ear: Auricle Normal Nose: Normal Inspection, Normal Mucosa, No Blood Throat/Mouth: Normal Inspection, Normal Lips, Inflammation Head: Atraumatic, Normocephalic Neck: Normal Inspection, Supple, Non-Tender, Full Range of Motion Respiratory/Chest: No Respiratory Distress, Lungs Clear Cardiovascular: Tachycardia, Irregularly Irregular Peripheral Pulses: 1+: Femoral (L), Femoral (R) GI/Abdominal: Normal Bowel Sounds, Soft, Non-Tender, No Organomegaly (Male) Exam: Deferred Rectal (Males) Exam: Deferred Back Exam: Normal Inspection, Full Range of Motion Extremities: Normal Inspection, Normal Range of Motion, Non-Tender, No Pedal Edema Neurological: Alert, Oriented, CN II-XII Intact, Normal Cognition, Normal Gait, Normal Reflexes, No Motor/Sensory Deficits Psychiatric: Normal Affect, Normal Mood Skin Exam: Warm, Dry, Intact, Normal Color, No Rash Lymphatic: No Adenopathy EKG INTERPRETATION EKG Date: 03/14/17 Time: 09:25 Rhythm: A-Fib Rate (Beats/Min): 13 Duncan: Normal P-Wave: Absent QRS: Normal ST-T: Normal QT: Normal Comparison: NA - No Prior EKG Course - Vital Signs Text/Narrative:: 81 years old w m with a h/o A fib and HTN, on coumadin, come to the ed because of dizziness. Pt came by PC to the ED for further car. Pt felt palpitation. His BP goes up/down No C/P.Pt is on Coumadin. No F/C BP 110/67 pulse 110 -145 bpm PE: Palpitation, A Fib with RVR Labs:WBC 6.3 HGB 13.3 INR 1.88 Na 130 K 3.6 C1.3 BUN 16 ECG: A fib with RVR Impression: A fib with RVR Tx: Cardiazem 10 mg and 10 mg Reexam: Pt;s puse rate improved but return back to 145 bpn Plan: Admit to tele. Dr. Lantigua accepted the pt for admission Last Recorded V/S: Last Vital Signs Temp 36.6 C 03/15/17 07:30 Pulse 66 03/15/17 07:30 Resp 18 03/15/17 07:30 BP 125/72 03/15/17 07:30 Pulse Ox 96 03/15/17 07:30 - Orders/Labs/Meds Orders: Medication Orders Diltiazem HCl 100 mg/ Sodium (Chloride) 100 mls @ 5 mls/hr IV TITRATE GARRETT; 5 MG /HR PRN Reason: Protocol Sodium Chloride (Saline Flush) 10 ml FLUSH ASDIRECTED PRN PRN Reason: Keep Vein Open Labs: Laboratory Tests 03/14/17 03/14/17 03/14/17 Range/Units 09:30 09:30 09:30 WBC 6.3 (4.5-12.0) X10-3/uL RBC 3.98 L (4.30-5.75) x10(6)uL Hgb 13.3 (11.5-15.5) g/dL Hct 39.3 (30.0-51.3) % MCV 98.6 H (80-96) fL MCH 33.5 (27.7-33.6) pg MCHC 34.0 (32.2-35.4) g/dL RDW 13.2 (11.5-15.5) % Plt Count 276 (125-369) X10(3)uL MPV 7.4 (7.4-10.4) fL Neut % (Auto) 69.2 (46-82) % Lymph % (Auto) 22.5 (13-37) % [place] % (Auto) 6.8 (4-12) % Eos % (Auto) 1 (1.0-5.0) % Baso % (Auto) 0 (0-2) % Neut # (Auto) 4.4 (1.6-8.3) # Lymph # (Auto) 1.4 (0.6-5.0) # [place] # (Auto) 0.4 (0.0-1.3) # Eos # (Auto) 0.1 (0.0-0.8) # Baso # (Auto) 0.0 (0.0-0.2) # PT 19.2 H (8.7-11.1) INR 1.88 H (0.89-1.13) Sodium 130 L (135-145) mmol/L Potassium 3.9 (3.5-5.3) mmol/L Chloride 101 (100-110) mmol/L Carbon Dioxide 22 L (23-29) mmol/L BUN 16 (8-23) mg/dL Creatinine 1.3 (0.6-1.3) mg/dL Est Cr Clr Drug Dosing TNP Estimated GFR (MDRD) 53 L (>60) BUN/Creatinine Ratio 12.3 (9-20) Glucose 146 H (80-116) mg/dL Calcium 8.8 (8.6-10.2) mg/dL Magnesium (1.8-2.5) mg/dL Troponin I (0.02-0.06) NG/ML NT-Pro-B Natriuret Pep (5-450) pg/mL 03/14/17 03/14/17 03/14/17 Range/Units 09:30 09:30 09:30 WBC (4.5-12.0) X10-3/uL RBC (4.30-5.75) x10(6)uL Hgb (11.5-15.5) g/dL Hct (30.0-51.3) % MCV (80-96) fL MCH (27.7-33.6) pg MCHC (32.2-35.4) g/dL RDW (11.5-15.5) % Plt Count (125-369) X10(3)uL MPV (7.4-10.4) fL Neut % (Auto) (46-82) % Lymph % (Auto) (13-37) % [place] % (Auto) (4-12) % Eos % (Auto) (1.0-5.0) % Baso % (Auto) (0-2) % Neut # (Auto) (1.6-8.3) # Lymph # (Auto) (0.6-5.0) # [place] # (Auto) (0.0-1.3) # Eos # (Auto) (0.0-0.8) # Baso # (Auto) (0.0-0.2) # PT (8.7-11.1) INR (0.89-1.13) Sodium (135-145) mmol/L Potassium (3.5-5.3) mmol/L Chloride (100-110) mmol/L Carbon Dioxide (23-29) mmol/L BUN (8-23) mg/dL Creatinine (0.6-1.3) mg/dL Est Cr Clr Drug Dosing Estimated GFR (MDRD) (>60) BUN/Creatinine Ratio (9-20) Glucose (80-116) mg/dL Calcium (8.6-10.2) mg/dL Magnesium 2.0 (1.8-2.5) mg/dL Troponin I < 0.01 L (0.02-0.06) NG/ML NT-Pro-B Natriuret Pep 4203 H (5-450) pg/mL Meds: Medications Generic Name Dose Route Start Last Admin Trade Name Freq PRN Reason Stop Dose Admin Diltiazem HCl 100 mg/ Sodium 100 mls @ 5 mls/hr 03/14/17 14:45 Chloride IV TITRATE GARRETT Protocol 5 MG/HR Sodium Chloride 10 ml 03/14/17 14:32 Saline Flush FLUSH ASDIRECTED PRN Keep Vein Open Discontinued Medications Generic Name Dose Route Start Last Admin Trade Name Freq PRN Reason Stop Dose Admin Diltiazem HCl 10 mg 03/14/17 09:44 03/14/17 10:09 Diltiazem IVPUSH 03/14/17 09:45 10 mg ONETIME ONE Administration Diltiazem HCl 10 mg 03/14/17 11:03 03/14/17 13:13 Diltiazem IVPUSH 03/14/17 11:04 Not Given ONETIME ONE Diltiazem HCl 180 mg 03/14/17 16:29 03/14/17 16:51 Cardizem Cd PO 03/14/17 16:30 180 mg ONETIME ONE Administration Diltiazem HCl 180 mg 03/15/17 00:30 03/15/17 00:25 Cardizem Cd PO 03/15/17 00:31 Not Given ONETIME ONE Sodium Chloride 500 mls @ 999 mls/hr 03/14/17 09:50 03/14/17 09:58 Normal Saline IV 03/14/17 10:20 999 mls/hr .BOLUS ONE Administration Sodium Chloride 1,000 mls @ 999 mls/min 03/14/17 11:46 03/14/17 11:49 Normal Saline IV 03/14/17 11:47 999 mls/min .BOLUS ONE Administration Warfarin Sodium 5 mg 03/14/17 21:00 03/14/17 20:51 Coumadin PO 03/14/17 21:01 5 mg ONETIME ONE Administration Departure - Departure Time of Disposition: 14:31 Disposition: Admitted As Inpatient 65 Condition: Fair Clinical Impression: Atrial fibrillation with rapid ventricular response
[2017-03-14] MEDS ORDERED: Sodium Chloride 0.9% 500 ML IV ONE (09:50)
[2017-03-14] MEDS ORDERED: Sodium Chloride 0.9% 1,000 ML IV ONE (11:46)
--- NOTE | 2017-03-14 13:57 | CR ---
INDICATION: CHF. CHEST: Two AP upright images of the chest were obtained 03/14/2017 and compared with 02/11/2017 and 03/14/2016, revealing the heart to appear normal in size. An electronic device is noted at the heart as previously. Overlying EKG leads are noted. The aorta is tortuous. The lungs appear to be somewhat hyperaerated. The study was obtained with AP lordotic positioning. No definite active infiltrate or effusion was identified - no consolidating pneumonia was seen. No definite evidence of CHF is identified. A small nodular density in the upper lateral lung field on the right is unchanged from the previous study of 2015 and likely represents a granuloma. IMPRESSION: No acute process. Would suggest PA and lateral views of the chest for further evaluation, as felt to be clinically necessary. MTDD
[2017-03-14] MEDS ORDERED: Sodium Chloride 0.9% 10 ML Syringe FLUSH PRN (14:32)
[2017-03-14] MEDS ORDERED: Diltiazem 100 MG in Sodium Chloride 0.9% 100 ML IV SCH (14:45)
--- NOTE | 2017-03-14 16:20 | PCM.HP ---
H&P History of Present Illness - General Date of Service: 03/14/17 Admit Problem/Dx: Admission Diagnosis/Problem Admission Diagnosis/Problem Atrial fibrillation with rapid ventricular response Source of Information: Patient History Limitations: Reports: No Limitations - History of Present Illness Initial Comments - Free Text/Narative: 81-year-old male was history of hypertension, and atrial fibrillation but previously been stable. Presented to the ER feeling dizzy and weak. He also felt light hjeaded(like he will pass out) associated with some palpitations.Worse on standing up. He said he has had these episodes before it' s due to his heart rate. Since about 10 years ago he had a syncopal event and from the time has been following up with cardiology and taking amiodarone to control his rhythm. He's been previously well until yesterday until this morning. In the emergency room he was given 1 L of normal sound, Cardizem, but his heart rate was going to 130s. He was admitted for observation and rate control. He has no chest pain headache fever chills - Related Data Allergies/Adverse Reactions: Allergies Allergy/AdvReac Type Severity Reaction Status Date / Time peanut Allergy Itching Verified 03/08/17 09:43 Home Medications: Home Meds Omeprazole 20 mg PO DAILY 03/29/15 [History] Amiodarone HCl [Pacerone] 100 mg PO DAILY 11/25/15 [History] Trandolapril 4 mg PO DAILY 09/06/16 [History] Warfarin Sodium [Jantoven] 5 mg PO DAILY 09/06/16 [History] Ammonium Lactate [Amlactin] 1 applic TP DAILY PRN 03/07/17 [History] Past Medical History HEENT History: Reports: Cataract, Other (See Below) Other HEENT History: Eyeglasses, hard of hearing Cardiovascular History: Reports: Afib, Hypertension Respiratory History: Reports: None Gastrointestinal History: Reports: GERD Genitourinary History: Reports: None Musculoskeletal History: Reports: Arthritis, Fracture Neurological History: Reports: Concussion Endocrine/Metabolic History: Reports: None Hematologic History: Reports: None Immunologic History: Reports: None Oncologic (Cancer) History: Reports: Basal Cell Carcinoma Dermatologic History: Reports: Seborrheic Dermatitis, Other (See Below) 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 Respiratory Surgical History: Reports: None GI Surgical History: Reports: Appendectomy, Colonoscopy, EGD, Hernia, Inguinal Other GI Surgeries/Procedures: BILATERAL INGUINAL HERNIA WITH MESH. Male Surgical History: Reports: None Endocrine Surgical History: Reports: None Neurological Surgical History: Reports: None Musculoskeletal Surgical History: Reports: None Oncologic Surgical History: Reports: None Social & Family History - Family History Family Medical History: Noncontributory - Tobacco Use Smoking Status *Q: Never Smoker Second Hand Smoke Exposure: No - Caffeine Use Caffeine Use: Reports: Coffee, Tea - Alcohol Use Days Per Week of Alcohol Use: 3 Number of Drinks Per Day: 1 Total Drinks Per Week: 3 - Recreational Drug Use Recreational Drug Use: No H&P Review of Systems - Review of Systems: Review Of Systems: ROS reveals no pertinent complaints other than HPI. Exam - Exam Exam: See Below - Vital Signs Vital Signs: Last Vital Signs Temp 97.9 F 03/14/17 14:25 Pulse 107 H 03/14/17 14:51 Resp 12 03/14/17 14:51 BP 139/92 H 03/14/17 14:51 Pulse Ox 97 03/14/17 14:51 Weight: 83.143 kg - Exam General: Alert, Oriented, 4 HEENT: PERRLA, Hearing Intact, Mucosa Moist & [place], Nares Patent, Normal Nasal Septum, Posterior Pharynx Clear, Conjunctiva Clear, EOMI, EACs Clear, TMs Clear Neck: Supple, Trachea Midline, 2 Lungs: Clear to Auscultation, Normal Respiratory Effort Cardiovascular: Irregular Rhythm, Tachycardia GI/Abdominal Exam: Normal Bowel Sounds, Soft, Non-Tender, No Organomegaly, No Distention, No Abnormal Bruit, No Mass, Pelvis Stable (Male) Exam: No Hernia, Normal Inspection, Normal Prostate, Circumcised Rectal (Males) Exam: Normal Exam, Normal Rectal Tone, Prostate Normal Back Exam: Normal Inspection, Full Range of Motion, NT Extremities: Normal Inspection, Normal Range of Motion, Non-Tender, No Pedal Edema, Normal Capillary Refill Skin: Warm, Dry, Intact Neurological: Cranial Nerves Intact, Reflexes Equal Bilateral Neuro Extensive - Mental Status: Alert, Oriented x3, Normal Mood/Affect, Normal Cognition Neuro Extensive - Motor, Sensory, Reflexes: CN II-XII Intact, Normal Gait, Normal Reflexes Psychiatric: Alert, Normal Affect, Normal Mood - Patient Data Result Diagrams: 03/15/17 06:40 03/15/17 06:40 EKG INTERPRETATION Rhythm: A-Fib *Q Meaningful Use (ADM) - VTE *Q VTE Criteria *Q: - Stroke *Q Stroke Criteria *Q: - AMI *Q AMI Criteria *Q: - Problem List (1) Atrial fibrillation with rapid ventricular response SNOMED Code(s): 858145136735242 ICD Code: I48.91 - UNSPECIFIED ATRIAL FIBRILLATION Status: Acute Current Visit: Yes (2) HTN (hypertension) SNOMED Code(s): 82248406 ICD Code: I10 - ESSENTIAL (PRIMARY) HYPERTENSION Status: Acute Current Visit: Yes Qualifiers: Hypertension type: essential hypertension Qualified Code(s): I10 - Essential (primary) hypertension (3) 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 SNOMED Code(s): 725853493 ICD Code: Z79.01 - ASSISTED (CURRENT) USE OF ANTICOAGULANTS Status: Acute Current Visit: Yes Problem List Initiated/Reviewed/Updated: Yes Orders Last 24hrs: Active Orders 24 hr Category Date Time Status Patient Status [ADT] Routine ADT 03/14/17 14:32 Active Cardiac Monitoring [RC] CONTINUOUS Care 03/14/17 14:34 Active Oxygen Therapy [RC] PRN Care 03/14/17 14:32 Active Up With Assistance [RC] ASDIRECTED Care 03/14/17 14:32 Active VTE/DVT Education [RC] Per Unit Routine Care 03/14/17 14:32 Active Vital Signs [RC] Q4H Care 03/14/17 14:32 Active Regular Diet [DIET] Diet 03/14/17 Dinner Active Diltiazem [Cardizem] 100 mg Med 03/14/17 14:45 Active Sodium Chloride 0.9% [Normal Saline] 100 ml IV TITRATE Sodium Chloride 0.9% [Saline Flush] Med 03/14/17 14:32 Active 10 ml FLUSH ASDIRECTED PRN Peripheral IV Insertion Adult [OM.PC] Routine Oth 03/14/17 14:32 Ordered Resuscitation Status Routine Resus Stat 03/14/17 14:32 Ordered Medication Orders Diltiazem HCl 100 mg/ Sodium (Chloride) 100 mls @ 5 mls/hr IV TITRATE GARRETT; 5 MG /HR PRN Reason: Protocol Sodium Chloride (Saline Flush) 10 ml FLUSH ASDIRECTED PRN PRN Reason: Keep Vein Open Assessment/Plan Comment:: I will admit him on telemetry, give him a 180 mg of Cardizem once. We'll keep him overnight repeat a TSH troponin basic profile in morning. Continue with anticoagulation.
[2017-03-14] MEDS ORDERED: Diltiazem 180 MG Cap.CD PO ONE (16:29)
[2017-03-14] MEDS ORDERED: Warfarin 5 MG Tab PO ONE (21:00)
[2017-03-15] MEDS ORDERED: Diltiazem 180 MG Cap.CD PO ONE (00:30)
[2017-03-15 07:58] VITALS: BP 125/72
--- NOTE | 2017-03-15 08:34 | PCM.PN ---
- General Info Date of Service: 03/15/17 Subjective Update: Patient converted last night to normal sinus rhythm. He complains of no symptoms this morning. Functional Status: Reports: Pain Controlled, Tolerating Diet - Review of Systems General: Reports: No Symptoms HEENT: Reports: No Symptoms Pulmonary: Reports: No Symptoms Cardiovascular: Reports: No Symptoms Gastrointestinal: Reports: No Symptoms Genitourinary: Reports: No Symptoms Musculoskeletal: Reports: No Symptoms Skin: Reports: No Symptoms Neurological: Reports: No Symptoms Psychiatric: Reports: No Symptoms - Patient Data Vitals - Most Recent: Last Vital Signs Temp 98 F 03/15/17 07:30 Pulse 66 03/15/17 07:30 Resp 18 03/15/17 07:30 BP 125/72 03/15/17 07:30 Pulse Ox 96 03/15/17 07:30 Weight - Most Recent: 83.143 kg Lab Results Last 24 Hours: Laboratory Results - last 24 hr 03/15/17 03/15/17 03/15/17 Range/Units 06:40 06:40 06:40 WBC 6.0 (4.5-12.0) X10-3/uL RBC 3.01 L (4.30-5.75) x10(6)uL Hgb 10.3 L D (11.5-15.5) g/dL Hct 29.8 L (30.0-51.3) % MCV 98.8 H (80-96) fL MCH 34.1 H (27.7-33.6) pg MCHC 34.5 (32.2-35.4) g/dL RDW 13.2 (11.5-15.5) % Plt Count 228 (125-369) X10(3)uL MPV 7.4 (7.4-10.4) fL Neut % (Auto) 61.7 (46-82) % Lymph % (Auto) 28.0 (13-37) % [place] % (Auto) 8.7 (4-12) % Eos % (Auto) 1 (1.0-5.0) % Baso % (Auto) 0 (0-2) % Neut # (Auto) 3.7 (1.6-8.3) # Lymph # (Auto) 1.7 (0.6-5.0) # [place] # (Auto) 0.5 (0.0-1.3) # Eos # (Auto) 0.1 (0.0-0.8) # Baso # (Auto) 0.0 (0.0-0.2) # Sodium 134 L (135-145) mmol/L Potassium 4.0 (3.5-5.3) mmol/L Chloride 107 D (100-110) mmol/L Carbon Dioxide 21 L (23-29) mmol/L BUN 14 (8-23) mg/dL Creatinine 1.1 (0.6-1.3) mg/dL Est Cr Clr Drug Dosing 53.46 mL/min Estimated GFR (MDRD) > 60 (>60) BUN/Creatinine Ratio 12.7 (9-20) Glucose 100 (80-116) mg/dL Calcium 8.0 L (8.6-10.2) mg/dL Troponin I < 0.01 L (0.02-0.06) NG/ML NT-Pro-B Natriuret Pep 2138 H (5-450) pg/mL TSH, Ultra Sensitive (0.4-5.5) nlU/mL 03/15/17 Range/Units 06:40 WBC (4.5-12.0) X10-3/uL RBC (4.30-5.75) x10(6)uL Hgb (11.5-15.5) g/dL Hct (30.0-51.3) % MCV (80-96) fL MCH (27.7-33.6) pg MCHC (32.2-35.4) g/dL RDW (11.5-15.5) % Plt Count (125-369) X10(3)uL MPV (7.4-10.4) fL Neut % (Auto) (46-82) % Lymph % (Auto) (13-37) % [place] % (Auto) (4-12) % Eos % (Auto) (1.0-5.0) % Baso % (Auto) (0-2) % Neut # (Auto) (1.6-8.3) # Lymph # (Auto) (0.6-5.0) # [place] # (Auto) (0.0-1.3) # Eos # (Auto) (0.0-0.8) # Baso # (Auto) (0.0-0.2) # Sodium (135-145) mmol/L Potassium (3.5-5.3) mmol/L Chloride (100-110) mmol/L Carbon Dioxide (23-29) mmol/L BUN (8-23) mg/dL Creatinine (0.6-1.3) mg/dL Est Cr Clr Drug Dosing mL/min Estimated GFR (MDRD) (>60) BUN/Creatinine Ratio (9-20) Glucose (80-116) mg/dL Calcium (8.6-10.2) mg/dL Troponin I (0.02-0.06) NG/ML NT-Pro-B Natriuret Pep (5-450) pg/mL TSH, Ultra Sensitive 0.76 (0.4-5.5) nlU/mL Med Orders - Current: Current Medications Diltiazem HCl 100 mg/ Sodium (Chloride) 100 mls @ 5 mls/hr IV TITRATE GARRETT; 5 MG /HR PRN Reason: Protocol Sodium Chloride (Saline Flush) 10 ml FLUSH ASDIRECTED PRN PRN Reason: Keep Vein Open Discontinued Medications Diltiazem HCl (Diltiazem) 10 mg IVPUSH ONETIME ONE Stop: 03/14/17 09:45 Last Admin: 03/14/17 10:09 Dose: 10 mg Diltiazem HCl (Diltiazem) 10 mg IVPUSH ONETIME ONE Stop: 03/14/17 11:04 Last Admin: 03/14/17 13:13 Dose: Not Given Diltiazem HCl (Cardizem Cd) 180 mg PO ONETIME ONE Stop: 03/14/17 16:30 Last Admin: 03/14/17 16:51 Dose: 180 mg Diltiazem HCl (Cardizem Cd) 180 mg PO ONETIME ONE Stop: 03/15/17 00:31 Last Admin: 03/15/17 00:25 Dose: Not Given Sodium Chloride (Normal Saline) 500 mls @ 999 mls/hr IV .BOLUS ONE Stop: 03/14/17 10:20 Last Admin: 03/14/17 09:58 Dose: 999 mls/hr Sodium Chloride (Normal Saline) 1,000 mls @ 999 mls/min IV .BOLUS ONE Stop: 03/14/17 11:47 Last Admin: 03/14/17 11:49 Dose: 999 mls/min Warfarin Sodium (Coumadin) 5 mg PO ONETIME ONE Stop: 03/14/17 21:01 Last Admin: 03/14/17 20:51 Dose: 5 mg - Exam Quality Assessment: No: Supplemental Oxygen General: Alert, Oriented HEENT: Pupils Equal, Pupils Reactive, EOMI, Mucous Membr. 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 Is currently wearing a long-term monitor loop, and I will discharge him home to follow-up with him. I put in a referral in the [place] chart for him to see one since his previous physician had left. I discharge him home and has a stable ondition
== END 2017-03-15 09:47 | disposition home or self-care (01) ==
LOC: FB.ED 09:22 → INTOOBSV 13:51 → FB.ICU 13:51
PROVIDERS: ADMIT Family Medicine; ATTEND Family Medicine
DX: I48.91 Unspecified atrial fibrillation (principal); I10 Essential (primary) hypertension; K21.9 Gastro-esophageal reflux disease without esophagitis; Z79.01 Long term (current) use of anticoagulants; Z91.010 Allergy to peanuts; Z79.899 Other long term (current) drug therapy; Z90.49 Acquired absence of other specified parts of digestive tract; Z98.890 Other specified postprocedural states
CPT/HCPCS: 36415; 71010; 80048; 83735; 83880; 84443; 84484; 85025; 85610; 93005; 96361; 96374; 99285; A9270; G0378; J3490; J7040; 99217; 99220; 99284

== ENCOUNTER 2017-03-21 10:03 | Emergency (ER) | payer MEDICARE, BC ==
[2017-03-21] MEDS ORDERED: Sodium Chloride 0.9% 10 ML Syringe FLUSH PRN (10:40)
[2017-03-21] MEDS ORDERED: Metoprolol Tartrate 50 MG Tab PO ONE (11:08)
--- NOTE | 2017-03-21 11:17 | EDM.PDOC ---
ED HPI GENERAL MEDICAL PROBLEM - General Chief Complaint: Cardiovascular Problem Stated Complaint: RAPID HEART RATE Time Seen by Provider: 03/21/17 11:00 Source of Information: Reports: Patient, Old Records, RN History Limitations: Reports: No Limitations - History of Present Illness INITIAL COMMENTS - FREE TEXT/NARRATIVE: 81 yo male with known Afib managed with amiodarone presents with onset today of tachycardia about 0930h. Has not had CP or SOB. Is taking his meds as prescribed. Is on warfarin and was due today for an INR. 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 (see below) (amiodarone daily) - Related Data Allergies Allergy/AdvReac Type Severity Reaction Status Date / Time peanut Allergy Itching Verified 03/21/17 10:30 Home Meds: Home Meds Omeprazole 20 mg PO DAILY 03/29/15 [History] Amiodarone HCl [Pacerone] 100 mg PO DAILY 11/25/15 [History] Trandolapril 4 mg PO DAILY 09/06/16 [History] Warfarin Sodium [Jantoven] 5 mg PO DAILY 09/06/16 [History] Ammonium Lactate [Amlactin] 1 applic TP DAILY PRN 03/07/17 [History] Past Medical History HEENT History: Reports: Cataract, Other (See Below) Other HEENT History: Eyeglasses, hard of hearing Cardiovascular History: Reports: Afib, Hypertension Respiratory History: Reports: None Gastrointestinal History: Reports: GERD Genitourinary History: Reports: None Musculoskeletal History: Reports: Arthritis, Fracture Neurological History: Reports: Concussion Endocrine/Metabolic History: Reports: None Hematologic History: Reports: None Immunologic History: Reports: None Oncologic (Cancer) History: Reports: Basal Cell Carcinoma Dermatologic History: Reports: Seborrheic Dermatitis, Other (See Below) Other Dermatologic History: BASAL CELL ON FACE - Infectious Disease History Infectious Disease History: Reports: Chicken Pox, Measles, Mumps, Shingles - Past Surgical History Head Surgeries/Procedures: Reports: None HEENT Surgical History: Reports: Cataract Surgery, Oral Surgery Cardiovascular Surgical History: Reports: Other (See Below) Other Cardiovascular Surgeries/Procedures: IMPLANTED LOOP RECORDER. Respiratory Surgical History: Reports: None GI Surgical History: Reports: Appendectomy, Colonoscopy, EGD, Hernia, Inguinal Other GI Surgeries/Procedures: BILATERAL INGUINAL HERNIA WITH MESH. Male Surgical History: Reports: None Endocrine Surgical History: Reports: None Neurological Surgical History: Reports: None Musculoskeletal Surgical History: Reports: None Oncologic Surgical History: Reports: None Social & Family History - Family History Family Medical History: Noncontributory - Tobacco Use Smoking Status *Q: Never Smoker Second Hand Smoke Exposure: No - Caffeine Use Caffeine Use: Reports: None - Alcohol Use Days Per Week of Alcohol Use: 3 Number of Drinks Per Day: 1 Total Drinks Per Week: 3 - Recreational Drug Use Recreational Drug Use: No ED ROS GENERAL - Review of Systems Review Of Systems: See Below Constitutional: Reports: No Symptoms HEENT: Reports: No Symptoms Respiratory: Reports: No Symptoms Cardiovascular: Reports: Palpitations GI/Abdominal: Reports: No Symptoms : Reports: No Symptoms Musculoskeletal: Reports: No Symptoms Skin: Reports: No Symptoms Neurological: Reports: No Symptoms Psychiatric: Reports: No Symptoms ED EXAM, GENERAL - Physical Exam Exam: See Below Exam Limited By: No Limitations General Appearance: Alert Eye Exam: Bilateral Eye: Normal Inspection Ears: Normal External Exam, Normal Canal, Hearing Grossly Normal Ear Exam: Bilateral Ear: Auricle Normal, Canal Normal Nose: Normal Inspection, Normal Mucosa, No Blood Throat/Mouth: Normal Inspection, Normal Lips, Normal Oropharynx, Normal Voice, No Airway Compromise Head: Atraumatic, Normocephalic Neck: Normal Inspection, Supple, Non-Tender Respiratory/Chest: No Respiratory Distress, Lungs Clear, Normal Breath Sounds, No Accessory Muscle Use Cardiovascular: No Edema, Tachycardia, Irregularly Irregular GI/Abdominal: Normal Bowel Sounds, Soft, Non-Tender, No Distention Back Exam: Normal Inspection Extremities: Normal Inspection, Normal Range of Motion, Non-Tender, No Pedal Edema Neurological: Alert, Oriented, CN II-XII Intact, Normal Cognition, No Motor/ Sensory Deficits Psychiatric: Normal Affect, Normal Mood Skin Exam: Warm, Dry, Intact, Normal Color, No Rash Lymphatic: No Adenopathy EKG INTERPRETATION EKG Date: 03/21/17 Time: 10:15 Rhythm: A-Fib Rate (Beats/Min): 133 [place]: Normal P-Wave: Absent QRS: Normal ST-T: Normal QT: Prolonged Comparison: No Change Course - Vital Signs Text/Narrative:: Discussed case with [facility] @ [facility]. Advises loading for a week with Amiodarone 400 mg qd, then reduce to 200 mg qd. Give metoprolol tartrate 25 mg po q 12h. Clinic recheck to assess HR in about a week. Last Recorded V/S: Last Vital Signs Temp 36.7 C 03/21/17 10:10 Pulse 70 03/21/17 12:45 Resp 18 03/21/17 12:45 BP 93/72 03/21/17 12:45 Pulse Ox 97 03/21/17 12:45 - Orders/Labs/Meds Orders: Active Orders 24 hr Category Date Time Status Cardiac Monitoring [RC] .As Directed Care 03/21/17 10:39 Active Sodium Chloride 0.9% [Saline Flush] Med 03/21/17 10:40 Active 10 ml FLUSH ASDIRECTED PRN Saline Lock Insert [OM.PC] Routine Oth 03/21/17 10:40 Ordered EKG 12 Lead [EK] Routine Ther 03/21/17 10:39 Ordered Medication Orders Sodium Chloride (Saline Flush) 10 ml FLUSH ASDIRECTED PRN PRN Reason: Keep Vein Open Last Admin: 03/21/17 10:57 Dose: 10 ml Labs: Laboratory Tests 03/21/17 03/21/17 Range/Units 11:14 11:14 PT 18.4 H (8.7-11.1) INR 1.80 H (0.89-1.13) Troponin I 0.01 L (0.02-0.06) NG/ML Meds: Medications Generic Name Dose Route Start Last Admin Trade Name Freq PRN Reason Stop Dose Admin Sodium Chloride 10 ml 03/21/17 10:40 03/21/17 10:57 Saline Flush FLUSH 10 ml ASDIRECTED PRN Administration Keep Vein Open Discontinued Medications Generic Name Dose Route Start Last Admin Trade Name Freq PRN Reason Stop Dose Admin Amiodarone HCl 400 mg 03/21/17 11:52 03/21/17 12:02 Cordarone PO 03/21/17 11:53 400 mg ONETIME ONE Administration Metoprolol Tartrate 50 mg 03/21/17 11:08 03/21/17 11:26 Lopressor PO 03/21/17 11:09 50 mg ONETIME ONE Administration Warfarin Sodium 7.5 mg 03/21/17 11:36 03/21/17 11:47 Coumadin PO 03/21/17 11:37 7.5 mg ONETIME ONE Administration Departure - Departure Time of Disposition: 13:54 Disposition: Home, Self-Care 01 Condition: Good Clinical Impression: Atrial fibrillation with RVR Referrals: Luciano Sandoval MD [Primary Care Provider] - Forms: ED Department Discharge Additional Instructions: Increase your amiodarone to 400 mg daily for the next 6 days, then change your dose to 200 mg daily. Recheck in the clinic with your provider in a week, call for an appt. Take metoprolol 50 mg every 12 hrs for the next 6 days as well, then decrease to 25 mg every 12 hrs. Call whoever guides your warfarin dosing to see what they want you to take now for your warfarin dose. Your INR today was 1.8. Return as needed. Avoid exertion for the next few days, then activity as tolerated. - My Orders Last 24 Hours: My Active Orders 03/21/17 10:39 Cardiac Monitoring [RC] .As Directed EKG 12 Lead [EK] Routine 03/21/17 10:40 Sodium Chloride 0.9% [Saline Flush] 10 ml FLUSH ASDIRECTED PRN Saline Lock Insert [OM.PC] Routine - Assessment/Plan Last 24 Hours: My Active Orders 03/21/17 10:39 Cardiac Monitoring [RC] .As Directed EKG 12 Lead [EK] Routine 03/21/17 10:40 Sodium Chloride 0.9% [Saline Flush] 10 ml FLUSH ASDIRECTED PRN Saline Lock Insert [OM.PC] Routine
[2017-03-21] MEDS ORDERED: Warfarin 2.5 MG Tab PO ONE (11:36)
[2017-03-21] MEDS ORDERED: Amiodarone 200 MG Tab PO ONE (11:52)
[2017-03-21 14:11] VITALS: BP 112/78
== END 2017-03-21 14:27 | disposition home or self-care (01) ==
LOC: FB.ED 10:03
DX: I48.91 Unspecified atrial fibrillation (principal); I10 Essential (primary) hypertension; K21.9 Gastro-esophageal reflux disease without esophagitis; Z79.01 Long term (current) use of anticoagulants; Z79.899 Other long term (current) drug therapy; Z91.010 Allergy to peanuts
CPT/HCPCS: 36415; 84484; 85610; 93005; 99285; A9270; J7050; 93010

== ENCOUNTER 2017-04-12 10:15 | Day surgery (SDC) | payer MEDICARE, BC ==
[2017-04-12] MEDS ORDERED: Sodium Chloride 0.9% 10 ML Syringe FLUSH PRN (10:30)
[2017-04-12] MEDS ORDERED: Propofol 200 MG/20 ML SDV IV ONE (13:22)
[2017-04-12 14:06] VITALS: BP 164/60
--- NOTE | 2017-04-13 07:55 | OR ---
DATE OF OPERATION: 04/12/2017 SURGEON: David Bonilla MD PREOPERATIVE DIAGNOSIS: Cataract, left eye. POSTOPERATIVE DIAGNOSIS: Cataract, left eye. PROCEDURE: Phacoemulsification of cataract left eye with the placement of an Ortega, model ZCB00, 22.5 diopter, foldable, posterior chamber intraocular lens. SEED ANALYST: None. DESCRIPTION OF PROCEDURE: Peribulbar anesthetic was performed using a mixture of 2% lidocaine with [place]. The patient was prepped and draped in the usual fashion. A 3 mm fornix based conjunctival flap was performed at the 10 o'clock position. Hemostasis was obtained using diathermy, and a 2.8 mm grooved near clear corneal incision was then made. A stab incision was made into the anterior chamber at the 12 o'clock position and a second stab wound incision was made underlying the grooved near clear corneal incision. Viscoat was instilled into the anterior chamber, and a continuous tear capsulotomy was performed. Hydrodissection was accomplished with balanced salt solution, and the nucleus was removed in a divide and conquer fashion. The remaining cortical material was removed with the irrigation and aspiration unit. Viscoat was instilled into the anterior chamber, and an Ortega, model ZCB00, 22.5 diopter, foldable, posterior chamber intraocular lens was placed into the capsular bag, the haptics being positioned at the 1 and 7 o'clock positions. The residual Viscoat was removed from the anterior chamber and the anterior chamber reformed with balanced salt solution. The wound was checked and noted to be watertight. The conjunctiva was secured in its original position with diathermy. Alphagan and Maxitrol Ointment were then placed into the patient's eye. The patient tolerated the procedure well and it was without complication. Elapsed phacoemulsification time was 46.4 seconds. Postoperative instructions as related to activities, as well as medications, were reviewed with the patient. The patient was instructed to return to see me on the day following surgery for the first postoperative check. The patient was also instructed to contact me prior to that time if he were to have any problems. /[id number] DEG/MODL CC: CHANDLER HU MD MTDD
== END 2017-04-12 14:45 ==
LOC: FB.SDS 10:15
PROVIDERS: ATTEND Ophthalmology
DX: H26.9 Unspecified cataract (principal); I48.0 Paroxysmal atrial fibrillation; I12.9 Hypertensive chronic kidney disease with stage 1 through stage 4 chronic kidney disease, or unspecified chronic kidney disease; N18.3 Chronic kidney disease, stage 3 (moderate); K21.9 Gastro-esophageal reflux disease without esophagitis; Z79.01 Long term (current) use of anticoagulants; Z91.010 Allergy to peanuts; Z79.899 Other long term (current) drug therapy; Z90.49 Acquired absence of other specified parts of digestive tract
CPT/HCPCS: 00142; 66984; C1780; J2704; J7050

== ENCOUNTER 2020-09-16 21:55 | Emergency (ER) | payer MEDICARE, BC ==
[2020-09-16] MEDS ORDERED: traMADol 50 MG Tab PO STA (22:02)
[2020-09-16] MEDS ORDERED: tiZANidine 4 MG Tab PO STA (22:02)
[2020-09-16] MEDS ORDERED: Acetaminophen 500 MG Tab PO STA (22:02)
--- NOTE | 2020-09-16 22:26 | EDM.PDOC ---
ED HPI GENERAL MEDICAL PROBLEM - General Stated Complaint: LT SHOULDER PAIN Time Seen by Provider: 09/16/20 21:55 Source of Information: Reports: Patient History Limitations: Reports: No Limitations - History of Present Illness INITIAL COMMENTS - FREE TEXT/NARRATIVE: Patient presented to the ED because of left shoulder pain. He said he was leaning on his left shoulder while watching TV and when he got up he c/o pain over the left shoulder and scapular area. - Related Data Allergies Allergy/AdvReac Type Severity Reaction Status Date / Time peanut Allergy Itching Verified 04/11/17 11:04 Home Meds: Home Meds Omeprazole 20 mg PO DAILY 03/29/15 [History] Amiodarone HCl [Pacerone] 200 mg PO DAILY 11/25/15 [History] Trandolapril 4 mg PO DAILY 09/06/16 [History] Warfarin Sodium [Jantoven] 2.5 mg PO ASDIRECTED 09/06/16 [History] Ammonium Lactate [Amlactin] 1 applic TP DAILY PRN 03/07/17 [History] Past Medical History HEENT History: Reports: Cataract, Other (See Below) Other HEENT History: Eyeglasses, hard of hearing Cardiovascular History: Reports: Afib, Hypertension Respiratory History: Reports: None Gastrointestinal History: Reports: GERD Genitourinary History: Reports: None Musculoskeletal History: Reports: Arthritis, Fracture Neurological History: Reports: Concussion Endocrine/Metabolic History: Reports: None Hematologic History: Reports: None Immunologic History: Reports: None Oncologic (Cancer) History: Reports: Basal Cell Carcinoma Dermatologic History: Reports: Seborrheic Dermatitis, Other (See Below) Other Dermatologic History: BASAL CELL ON FACE - Infectious Disease History Infectious Disease History: Reports: Chicken Pox, Measles, Mumps, Shingles - Past Surgical History Head Surgeries/Procedures: Reports: None HEENT Surgical History: Reports: Cataract Surgery, Oral Surgery Cardiovascular Surgical History: Reports: Other (See Below) Other Cardiovascular Surgeries/Procedures: IMPLANTED LOOP RECORDER. Respiratory Surgical History: Reports: None GI Surgical History: Reports: Appendectomy, Colonoscopy, EGD, Hernia, Inguinal Other GI Surgeries/Procedures: BILATERAL INGUINAL HERNIA WITH MESH. Male Surgical History: Reports: None Endocrine Surgical History: Reports: None Neurological Surgical History: Reports: None Musculoskeletal Surgical History: Reports: None Oncologic Surgical History: Reports: None Social & Family History - Family History Family Medical History: No Pertinent Family History - Caffeine Use Caffeine Use: Reports: None Review of Systems - Review of Systems Review Of Systems: See Below Constitutional: Reports: No Symptoms Ears: Reports: No Symptoms Nose: Reports: No Symptoms Mouth/Throat: Reports: No Symptoms Respiratory: Reports: No Symptoms Cardiovascular: Reports: No Symptoms GI/Abdominal: Reports: No Symptoms Genitourinary: Reports: No Symptoms Musculoskeletal: Reports: Shoulder Pain Skin: Reports: No Symptoms Neurological: Reports: No Symptoms ED EXAM, GENERAL - Physical Exam Exam: See Below Exam Limited By: No Limitations General Appearance: Alert, No Apparent Distress Ears: Normal External Exam, Normal Canal, Hearing Grossly Normal Nose: Normal Inspection, Normal Mucosa Throat/Mouth: Normal Inspection, Normal Lips Head: Atraumatic, Normocephalic Neck: Normal Inspection, Supple, Non-Tender, Full Range of Motion Respiratory/Chest: No Respiratory Distress, Lungs Clear, Normal Breath Sounds Cardiovascular: Normal Peripheral Pulses, Regular Rate, Rhythm GI/Abdominal: Normal Bowel Sounds, Soft, Non-Tender, No Organomegaly Back Exam: Normal Inspection, Full Range of Motion Extremities: Normal Inspection, Other (tenderness elft shoulder and scapula) Neurological: Alert, Oriented, CN II-XII Intact Psychiatric: Normal Affect Skin Exam: Warm Course - Vital Signs Text/Narrative:: Tylenol 1000 mg po x1 zanaflex 2 mg po x2 tramadol 50 mg po x1 - Orders/Labs/Meds Meds: Medications Discontinued Medications Generic Name Dose Route Start Last Admin Trade Name Jillian PRN Reason Stop Dose Admin Acetaminophen 1,000 mg 09/16/20 22:02 Acetaminophen 500 Mg Tab PO 09/16/20 22:03 NOW STA Tizanidine HCl 2 mg 09/16/20 22:02 Tizanidine 4 Mg Tab PO 09/16/20 22:03 NOW STA Tramadol HCl 50 mg 09/16/20 22:02 Tramadol 50 Mg Tab PO 09/16/20 22:03 NOW STA Departure - Departure Time of Disposition: 22:50 Disposition: Home, Self-Care 01 Condition: Good Clinical Impression: Shoulder sprain - Discharge Information Referrals: Luciano Sandoval MD [Primary Care Provider] - Additional Instructions: Please read discharge instructions on shoulder sprain Apply ice take tylenol 1000 mg every 8 hours as needed for pain Follow up as needed
[2020-09-17 01:10] VITALS: BP 151/90; PULSE 70
== END 2020-09-16 22:35 | disposition home or self-care (01) ==
LOC: FB.ED 21:55
DX: S43.402A Unspecified sprain of left shoulder joint, initial encounter (principal); I48.91 Unspecified atrial fibrillation; I10 Essential (primary) hypertension; K21.9 Gastro-esophageal reflux disease without esophagitis; Z91.010 Allergy to peanuts; Z79.899 Other long term (current) drug therapy; X58.XXXA Exposure to other specified factors, initial encounter
CPT/HCPCS: 99283; A9270

== ENCOUNTER 2022-03-05 07:03 | Day surgery (SDC) | payer MEDICARE, BC ==
[~2022-03-05 07:03] MED LIST changes: +Lactated Ringers 1,000 ML IV SCH
[2022-03-05] MEDS ORDERED: Propofol 200 MG/20 ML SDV IV ONE (09:00)
[2022-03-05] MEDS ORDERED: Lidocaine 2% 5 ML SDV IV ONE (09:00)
[2022-03-05 09:42] VITALS: PULSE 69
[2022-03-05 10:06] VITALS: BP 169/99
== END 2022-03-05 10:10 | disposition home or self-care (01) ==
LOC: FB.SDS 07:03
PROVIDERS: ATTEND Surgery
DX: K20.90 Esophagitis, unspecified without bleeding (principal); K44.9 Diaphragmatic hernia without obstruction or gangrene; I12.9 Hypertensive chronic kidney disease with stage 1 through stage 4 chronic kidney disease, or unspecified chronic kidney disease; N18.9 Chronic kidney disease, unspecified; K21.9 Gastro-esophageal reflux disease without esophagitis; I48.0 Paroxysmal atrial fibrillation; N40.1 Benign prostatic hyperplasia with lower urinary tract symptoms; L57.0 Actinic keratosis; Z91.010 Allergy to peanuts; Z79.899 Other long term (current) drug therapy; Z79.01 Long term (current) use of anticoagulants; Z90.49 Acquired absence of other specified parts of digestive tract; Z98.890 Other specified postprocedural states
CPT/HCPCS: 43239; 88305; J2704; J7120

== ENCOUNTER 2022-10-19 17:10 | Emergency (ER) | payer OTHER, MEDICARE, BC ==
[2022-10-19 17:37] LABS: BASOPHILS PERCENT AUTO 0.3 % (0.3-3.8); EOSINOPHILS ABSOLUTE AUTO 0.1 x10-3/uL (0.0-0.6); EOSINOPHILS PERCENT AUTO 2.2 % (0.1-6.8); HEMOGLOBIN 11.6 g/dL (12.9-17.7); LYMPHOCYTES ABSOLUTE AUTO 1.3 x10-3/uL (0.5-4.5); MEAN CORPUSCULAR HEMOGLOBIN 34.6 pg (27.0-33.3); MEAN CORPUSCULAR HGB CONC 34.2 g/dL (28.7-35.3); MEAN CORPUSCULAR VOLUME 101.1 fL (80.8-98.7); MONOCYTES ABSOLUTE AUTO 0.5 x10-3/uL (0.0-1.2); MONOCYTES PERCENT AUTO 10.3 % (5.5-15.2); NEUTROPHILS PERCENT AUTO 61.2 % (40.3-71.8); PLATELET COUNT,PLT 183 x10(3)uL (117-477); RED BLOOD CELL COUNT 3.36 x10(6)uL (3.90-5.90); RED CELL DISTRIBUTION WIDTH 13.8 % (12.4-15.0); WHITE BLOOD CELL COUNT,WBC 4.9 x10-3/uL (3.2-10.1)
[2022-10-19 17:40] LABS: BLOOD UREA NITROGEN,BUN 19 mg/dL (7-18); BUN/CREATININE RATIO 14.6 (9-20); CALCIUM 8.5 mg/dL (8.6-10.2); CARBON DIOXIDE,CO2 26 mmol/L (21-32); CHLORIDE,CL 97 mmol/L (100-110); CREATININE 1.3 mg/dL (0.70-1.30); ESTIMATED GFR 53 mL/min (>60); GLUCOSE RANDOM 99 mg/dL (80-116); POTASSIUM,K 4.5 mmol/L (3.5-5.3); SODIUM,NA 130 mmol/L (135-145)
[2022-10-19 17:41] LABS: INR 1.89 (1.00-1.24); PROTHROMBIN TIME 19.2 sec (9.0-11.1)
[2022-10-19 17:46] LABS: ALANINE AMINOTRANSFERASE,ALT 21 U/L (12-36); ALBUMIN 3.3 g/dL (3.2-4.6); ALKALINE PHOSPHATASE 121 IU/L (56-112); ASPARTATE AMNIOTRANSFERASE,AST 34 IU/L (5-25); BILIRUBIN TOTAL 0.4 mg/dL (0.1-1.3); PROTEIN TOTAL,TP 6.7 g/dL (6.0-8.0)
[2022-10-19 21:05] VITALS: BP 170/96; PULSE 73
== END 2022-10-19 21:05 | disposition home or self-care (01) ==
LOC: FB.ED 17:10
DX: R40.4 Transient alteration of awareness (principal); I12.9 Hypertensive chronic kidney disease with stage 1 through stage 4 chronic kidney disease, or unspecified chronic kidney disease; D63.1 Anemia in chronic kidney disease; N18.9 Chronic kidney disease, unspecified; K21.9 Gastro-esophageal reflux disease without esophagitis; I48.91 Unspecified atrial fibrillation; Z91.010 Allergy to peanuts; Z79.01 Long term (current) use of anticoagulants; Z79.899 Other long term (current) drug therapy
CPT/HCPCS: 36415; 70450; 80053; 84484; 85025; 85610; 93005; 99285

== ENCOUNTER 2023-05-19 06:14 | Day surgery (SDC) | payer MEDICARE, BC ==
[2023-05-19] MEDS ORDERED: Lactated Ringers 1,000 ML IV SCH (06:15)
[2023-05-19] MEDS ORDERED: Sodium Chloride 0.9% 10 ML Syringe FLUSH PRN (06:15)
[2023-05-19] MEDS ORDERED: Propofol 200 MG/20 ML SDV IV ONE (06:15)
[2023-05-19] MEDS ORDERED: Midazolam 1 MG/ML 2 ML SDV IV ONE (06:15)
[2023-05-19 10:19] VITALS: BP 117/71; PULSE 71
== END 2023-05-19 09:13 | disposition home or self-care (01) ==
LOC: FB.SDS 06:14
PROVIDERS: ATTEND Surgery
DX: K22.70 Barrett's esophagus without dysplasia (principal); K21.00 Gastro-esophageal reflux disease with esophagitis, without bleeding; I12.9 Hypertensive chronic kidney disease with stage 1 through stage 4 chronic kidney disease, or unspecified chronic kidney disease; N18.9 Chronic kidney disease, unspecified; K44.9 Diaphragmatic hernia without obstruction or gangrene; I48.0 Paroxysmal atrial fibrillation; Z79.01 Long term (current) use of anticoagulants; Z79.899 Other long term (current) drug therapy
CPT/HCPCS: 00731; 88305; 99100; J2250; J2704; J7120

== ENCOUNTER 2024-06-13 09:02 | Day surgery (SDC) | payer MEDICARE, BC ==
[2024-06-13] MEDS ORDERED: Propofol 200 MG/20 ML SDV IV ONE (09:03)
[2024-06-13] MEDS ORDERED: Sodium Chloride 0.9% 10 ML Syringe FLUSH PRN (09:15)
[2024-06-13] MEDS: Lactated Ringers 1,000 ML IV SCH (10:13)
[2024-06-13] MEDS: Simethicone Drops 40 MG/0.6 ML 30 ML Bottle ONE (10:25)
[2024-06-13 12:12] VITALS: BP 149/94; PULSE 76
== END 2024-06-13 11:42 | disposition home or self-care (01) ==
LOC: FB.SDS 09:02
PROVIDERS: ATTEND Surgery
DX: K22.70 Barrett's esophagus without dysplasia (principal); K44.9 Diaphragmatic hernia without obstruction or gangrene; I48.0 Paroxysmal atrial fibrillation; I12.9 Hypertensive chronic kidney disease with stage 1 through stage 4 chronic kidney disease, or unspecified chronic kidney disease; N18.9 Chronic kidney disease, unspecified; Z79.899 Other long term (current) drug therapy; Z79.01 Long term (current) use of anticoagulants; Z91.018 Allergy to other foods
CPT/HCPCS: 00731; 88305; 99100; A9270-GY; J2704; J7120